=== PATIENT | female | born 1995 | race Caucasian/White ===

== ENCOUNTER 2019-12-01 20:56 | Emergency (ER) | payer MEDICAID, SELFPAY ==
[2019-12-01 21:07] VITALS: BP 146/77; PULSE 97; RESP 15; TEMP 36.8; O2SAT 100; BMI 30.9
[2019-12-01 21:14] LABS: Microscopic, Urine URINE MICROSCOPIC (MICROSCOPIC)
[2019-12-01 21:17] LABS: Appearance,Urine CLEAR (Clear); Bilirubin,Urine Negative (Negative); Blood, Urine Negative (Negative); Color,Urine YELLOW (Yellow); Glucose,Urine (UA) Negative (Negative); Ketones,Urine Negative (Negative); Leukocyte Esterase,Urine Negative (Negative); Nitrate,Urine Negative (Negative); PH,Urine 8.5 (5.0-8.5); Protein,Urine Negative (Negative); Urobilinogen,Urine 0.2 EU/dl (0.2)
[2019-12-01 21:27] LABS: Amorphous Sediment,Urine 1+ /lpf; Bacteria,Urine Trace /lpf; WBC,Urine Occasional #/hpf (0-3)
--- NOTE | 2019-12-01 21:47 | CT_ITS ---
PROCEDURE: CT ABDOMEN PELVIS WO CON CLINICAL INDICATION: belly pain Right flank pain COMPARISON: No exams were available for comparison TECHNIQUE: Axial images obtained with sagittal and coronal reformats. All CT scans at the facility use one or more dose reduction, viz: automated exposure control, ma/kV adjustment per patient size (including targeted exams where dose is matched to indication, i.e. head), or iterative reconstruction technique. FINDINGS: LOWER THORAX: No acute finding ABDOMEN & PELVIS: The liver, spleen, adrenal glands, pancreas, and kidneys have an unremarkable unenhanced CT appearance. There is a mild amount of retained colonic feces. There is a mild degree of motion artifact. No renal or ureteral calculi. No evidence of appendicitis. No pelvic mass or abnormal fluid collection. No acute bony findings. IMPRESSION: No acute finding Dictated by: Carlos Milan MD 12/02/2019 06:25 Carlos Milan MD in [place] 12/02/2019 06:25
[2019-12-01 21:49] LABS: Basophils # 0.1 K/mm3 (0-0.2); Basophils % 0.9 % (0.1-2.0); Eosinophils # 0.2 K/mm3 (0.0-0.4); Eosinophils % 2.3 % (0.1-12.0); Hematocrit 35.4 % (37.0-47.0); Hemoglobin 12.3 g/dL (12.2-16.2); Lymphocytes # 2.3 K/mm3 (0.7-4.5); Lymphocytes % 27.7 % (10-50); Mean Corpuscular HGB Conc 34.7 g/dL (31.8-35.4); Mean Corpuscular Hemoglobin 30.8 pg (27.0-31.2); Mean Corpuscular Volume 88.7 fl (81-99); Mean Platelet Volume 8.4 fl (7.4-10.4); Monocytes # 0.3 K/mm3 (0.1-1.0); Monocytes % 3.4 % (1.7-9.3); Neutrophils # 5.4 K/mm3 (1.8-7.8); Neutrophils % 65.8 % (37.0-80.0); Platelet Count 265 K/mm3 (142-424); Red Blood Count 3.99 M/mm3 (4.20-5.40); Red Cell Distribution Width 13.7 % (11.5-17.5); White Blood Count 8.2 K/mm3 (4.8-10.8)
[2019-12-01 22:00] VITALS: BP 128/72; PULSE 84; RESP 16; O2SAT 94
[2019-12-01 22:03] LABS: Chloride 105 mmol/L (98-107); Sodium 143 mmol/L (136-145)
[2019-12-01 22:04] LABS: Potassium 3.9 mmoL/L (3.5-5.1)
[2019-12-01 22:06] LABS: Alanine Aminotransferase 17 U/L (12-78); Alkaline Phosphatase 63 U/L (38-126); Amylase 50 U/L (30-110); Anion Gap 13.9 mEq/L (5-15); Aspartate Amino Transferase 25 U/L (14-36); Bilirubin,Total 0.5 mg/dl (0.2-1.3); Blood Urea Nitrogen 10 mg/dl (7-17); Calcium 9.6 mg/dl (8.4-10.2); Carbon Dioxide 28 mmol/L (22.0-30.0); Creatinine Clearance Estimated 220 mL/min (50-200); Estimated Glomerular Filt Rate 149 ml/min (>60); GFR (African American) 180 ML/MIN (>60); Glucose 99 mg/dl (74-100)
[2019-12-01 22:07] LABS: Albumin Level 4.3 g/dl (3.5-5.0); Albumin/Globulin Ratio 1.4 (1.1-1.8); Lipase 48 U/L (23-300); Total Protein,Serum 7.3 g/dl (6.3-8.2)
[2019-12-01 22:40] VITALS: BP 124/74; PULSE 88; RESP 15; O2SAT 98
--- NOTE | 2019-12-02 00:05 | HMH.EDABDPAI ---
ED Disposition Clinical Impression: Abdominal pain Qualifiers: Abdominal location: generalized Qualified Code(s): R10.84 - Generalized abdominal pain Disposition: Home, Self-Care Condition on Discharge: Fair Instructions: DI for Acute Abdomen Additional Instructions: Your labs as well as urine analysis also checked a CT abdomen and pelvis and no acute findings are seen plan is to discharge you home on a medicine called Bentyl which is basically for abdominal cramps please follow-up as needed with your primary care physician Prescriptions: Dicyclomine HCl [Bentyl 10mg capsule] 10 mg PO TID PRN #10 cap PRN Reason: Cramping Transmission Status: Pending to [facility] Referrals: Anish Gilmore [Primary Care Provider] - Forms: Work/School Release Time of Disposition: 00:11 - Critical Care Critical Care Time: No Attestation: On 12/01/19, the high probability of a clinically significant, sudden or life threatening deterioration of the following system(s) required my full and direct attention, intervention and personal management. The time I documented below is in addition to time spent performing reported procedures but includes the following listed in this critical care notation. Medical Decision Making - Medical Records Medical records reviewed: Yes: I reviewed the patient's medical records. MR Comment: Complaint of abdominal pain that has been ongoing for about 6 months she is here today because she states the symptoms are worse today it is nonspecific and diffuse. Labs show no acute findings; CT of the abdomen and pelvis was also reviewed and it also shows no acute findings; plan is to discharge patient home on Bentyl for abdominal cramps; I have advised her to follow-up with her primary care physician in case of any other concerns - [place] Inquiry Pt receiving controlled substance: No Vital Signs: 12/01/19 21:07 Temperature 98.3 F Temperature Source Oral Pulse Rate [Right Brachial] 97 H Respiratory Rate 15 Blood Pressure [Right Arm] 146/77 H Blood Pressure Mean [Right Arm] 100 Blood Pressure Source [Right Arm] Automatic Cuff Blood Pressure Position [Right Arm] Sitting 02 Sat by Pulse Oximetry 100 Oxygen Delivery Method Room Air - Lab Data Lab results reviewed: Yes: I reviewed the patient's lab results. Lab Results 12/01/19 21:00: Urine Color Yellow, Urine Appearance Clear, Urine pH 8.5, Ur Specific [place] 1.020, Urine Protein Negative, Urine Glucose (UA) Negative, Urine Ketones Negative, Urine Blood Negative, Urine Nitrate Negative, Urine Bilirubin Negative, Urine Urobilinogen 0.2, Ur Leukocyte Esterase Negative, Urine WBC Occasional, Amorphous Sediment 1+, Urine Bacteria Trace 12/01/19 21:45: WBC 8.2, RBC 3.99 L, Hgb 12.3, Hct 35.4 L, MCV 88.7, MCH 30.8, MCHC 34.7, RDW 13.7, Plt Count 265, MPV 8.4, Neut % (Auto) 65.8, Lymph % (Auto) 27.7, [place] % (Auto) 3.4, Eos % (Auto) 2.3, Baso % (Auto) 0.9, Neut # (Auto) 5.4, Lymph # (Auto) 2.3, [place] # (Auto) 0.3, Eos # (Auto) 0.2, Baso # (Auto) 0.1 12/01/19 21:45: Sodium 143, Potassium 3.9, Chloride 105, Carbon Dioxide 28, Anion Gap 13.9, BUN 10, Creatinine 0.50 L, Estimated Creat Clear 220, Estimated GFR 149, Est GFR ( Amer) 180, Glucose 99, Calcium 9.6, Total Bilirubin 0.5, AST 25, ALT 17, Alkaline Phosphatase 63, Total Protein 7.3, Albumin 4.3, Globulin 3.0, Albumin/Globulin Ratio 1.4, Amylase 50, Lipase 48 Result diagrams: 12/01/19 21:45 12/01/19 21:45 Orders (Tests/Meds): ORDERS Category Date Time Status CT abdomen pelvis wo con Stat Cat Scan 12/01/19 21:47 Taken - Radiology Data #1 Image(s): Abdomen Image Reviewed: Yes I reviewed the patient's radiology results Abdominal Pain HPI - General Chief Complaint: Abdominal Pain Stated Complaint: Abd Pain Time Seen by Provider: 12/01/19 21:05 Mode of Arrival: Ambulatory Source of Information: Patient Limitations: No Limitations Description of Symptoms (Recalle
[2019-12-02 00:13] VITALS: BP 127/73; PULSE 76; RESP 16; TEMP 36.8; O2SAT 100
== END 2019-12-02 00:18 | disposition home or self-care (01) ==
PROVIDERS: Emergency Provider Emergency Medicine; PCP Internal Medicine
DX: R10.84 Generalized abdominal pain (principal)
CPT/HCPCS: 74176; 80053; 81001; 82150; 83690; 85025; 99283

== ENCOUNTER 2019-12-21 14:18 | Emergency (ER) | payer MEDICAID, SELFPAY ==
[2019-12-21 15:12] VITALS: BP 124/78; PULSE 70; RESP 20; TEMP 36.6; O2SAT 100; BMI 29.2
--- NOTE | 2019-12-21 15:18 | HMH.EDUTC ---
[facility] [place] Impression: Bronchitis Sinusitis Qualifiers: Sinusitis location: unspecified location Chronicity: unspecified Qualified Code(s): J32.9 - Chronic sinusitis, unspecified Disposition: Home, Self-Care Condition on Discharge: Good Instructions: Sinusitis, Sinus Headache, DI for Sinusitis, Acute Bronchitis, DI for Acute Bronchitis Additional Instructions: ? Start antibiotic today. Be sure to complete entire prescription even if feeling better ? Monitor temp. Tylenol every 4 hours as needed and / or ibuprofen every 6 hours as needed ( As long as your primary care physician has told you that it ok to take both. For fever/aches/pains ER if no less than 101 despite Tylenol or Motrin ? Humidifier/vaporizer or hot steamy shower ? Inhaler every 4-6 hours as needed like we discussed. If unsure how to use it, ask pharmacist to demonstrate how. Should help open airways and improve cough, wheezing, and shortness of breath ? Mucinex during the day for your cough and cough suppressant only at night. Be sure to drink lots of water. Insurance may not cover a prescriptions for mucinex. Might be cheaper to get 400mg tablets and take 2 tablet in the morning, mid-day and evening with lots of water. Start steroid today. Helps with inflammation therefore, cough and wheezing. Follow directions on the package. Reviewed side effects. Patient reports taking them before. Follow up IMMEDIATELY for new or worsening of symptoms OR no noticeable improvement over the next 48-72 hours. 911 immediately for any life threatening symptoms such as chest pain or difficulty breathing Prescriptions: Albuterol Sulfate [Proventil-HFA 90mcg/puff Inh] 1 - 2 puffs IH Q4HP PRN #1 inh PRN Reason: Shortness Of Breath Transmission Status: Pending to [facility] # methylPREDNISolone [Medrol 4mg tab] 4 mg PO DIRECTED #21 tab Transmission Status: Pending to [facility] # Azithromycin [Z-Ag 250mg Tab] 250 mg PO DIRECTED #6 tab Transmission Status: Pending to [facility] # Referrals: Anish Gilmore [Primary Care Provider] - As needed Forms: Work/School Release Time of Disposition: 15:24 Medical Decision Making - Gustabo Inquiry Pt receiving controlled substance: No [place] was queried for this patient: No Vital Signs: 12/21/19 15:12 Temperature 97.9 F Temperature Source Oral Pulse Rate [Right Brachial] 70 Respiratory Rate 20 Blood Pressure [Right Arm] 124/78 Blood Pressure Mean [Right Arm] 93 Blood Pressure Source [Right Arm] Automatic Cuff Blood Pressure Position [Right Arm] Sitting 02 Sat by Pulse Oximetry 100 Oxygen Delivery Method Room Air Orders (Tests/Meds): ORDERS Category Date Time Status Covid-19 Nasal PCR ([facility]) Routine Lab 12/21/19 14:40 Received [facility] [place] - General Stated complaint: cough, sore throat, breating trouble Time Seen by Provider: 12/21/19 15:18 Mode of Arrival: Ambulatory Source of Information: Patient Limitations: No Limitations Description of Symptoms (Recalled from Triage Doc. by RN): PATIENT C/O WET COUGH AND CHEST DISCOMFORT X 2 WEEKS AND SORE THROAT X 1 WEEK HEENT Symptoms (Recalled from RN notes): Yes Resp Symptoms (Recalled from RN notes): Yes Skin Symptoms (Recalled from RN notes): No MS Symptoms (Recalled from RN notes): No Functional Status (Recalled from RN notes): WNL - History of Present Illness Provider Complaint: Patient states that she feels like she may have bronchitis States that she has been having sinus pain and pressure along with sore throat and productive cough at times States that she is unsure if she has had fever or not but has had headache and yellowish green mucous from her nose - Related Data Previous Rx's Medication Instructions Recorded Albuterol Sulfate [Proventil-HFA 1 - 2 puffs IH Q4HP PRN #1 inh 12/21/19 90mcg/puff Inh] Azithromycin [Z-Ga 250mg Tab] 250 mg PO DIRECTED #6 tab 0
[2019-12-21 15:37] VITALS: BP 122/85; PULSE 66; RESP 19; TEMP 36.7; O2SAT 99
--- NOTE | 2019-12-21 23:09 | PC.NURSE ---
Called pt and informed her she was positive for COVID. Advised her to call her place of employment and let them know. Also advised her she needed to self-quarantine and monitor her symptoms.
== END 2019-12-21 15:42 | disposition home or self-care (01) ==
PROVIDERS: Emergency Provider Nurse Practitioner; PCP Internal Medicine
DX: J20.9 Acute bronchitis, unspecified (principal); J32.9 Chronic sinusitis, unspecified; Z20.828 Contact with and (suspected) exposure to other viral communicable diseases
CPT/HCPCS: 99201; U0003

== ENCOUNTER 2020-05-12 14:07 | Emergency (ER) | payer MEDICAID, SELFPAY ==
[2020-05-12 14:15] VITALS: BP 138/93; PULSE 83; RESP 18; TEMP 36.9; O2SAT 97; BMI 27.4
--- NOTE | 2020-05-12 14:31 | HMH.EDUTC ---
[facility] [place] Clinical Impression: Sinusitis Qualifiers: Sinusitis location: maxillary Chronicity: acute Recurrence: non-recurrent Qualified Code(s): J01.00 - Acute maxillary sinusitis, unspecified Disposition: Home, Self-Care Condition on Discharge: Good Instructions: DI for Sinusitis Prescriptions: Amoxicillin/Potassium Clav [Augmentin 875-125 Tablet] 1 tab PO Q12H 10 Days #20 tab Transmission Status: Pending to [facility] # predniSONE [Prednisone 20mg Tab] 20 mg PO BID 5 Days #10 tab Transmission Status: Pending to [facility] # Referrals: Anish Gilmore [Primary Care Provider] - Time of Disposition: 14:39 Medical Decision Making - [place] Inquiry Pt receiving controlled substance: No [facility] [place] - General Stated complaint: sore throat, headache chest congestion Time Seen by Provider: 05/12/20 14:31 - History of Present Illness Provider Complaint: Headache, chest congestion, drainage, cough X 1 week. No fever. Has had some nausea. No vomiting or diarrhea. No loss of taste or smell. No exposure to COVID19. Onset (ago): week(s) (1) Location: chest Relieving factors: none Exacerbating factors: none Associated symptoms: denies other symptoms - Related Data Previous Rx's Medication Instructions Recorded Albuterol Sulfate [Proventil-HFA 1 - 2 puffs IH Q4HP PRN #1 inh 12/21/19 90mcg/puff Inh] Azithromycin [Z-Ag 250mg Tab] 250 mg PO DIRECTED #6 tab 12/21/19 methylPREDNISolone [Medrol 4mg 4 mg PO DIRECTED #21 tab 12/21/19 tab] Amoxicillin/Potassium Clav 1 tab PO Q12H 10 Days #20 tab 05/12/20 [Augmentin 875-125 Tablet] predniSONE [Prednisone 20mg 20 mg PO BID 5 Days #10 tab 05/12/20 Tab] Allergies Allergy/AdvReac Type Severity Reaction Status Date / Time No Known Allergies Allergy Verified 04/30/19 16:26 [facility] History - Hepatitis A Screen Attestation statement:: This patient has been screened for Hepatitis A risk factors. I have reviewed the patient's past medical history: Yes - Social History Alcohol Intake: never Occupational Status: other ROS Obtained: Yes All systems reviewed & no additional complaints - Constitutional Constitutional: Reports system reviewed and no additional complaints, except as docu, Reports body ache, Reports chills, Reports headache(s) - ENT Ears, Nose, Mouth, and Throat: Reports sore throat - Respiratory Respiratory: Reports chest congestion Physical Exam - General General appearance: alert, in no apparent distress - Head Head exam: atraumatic, normocephalic, normal inspection - Eye Eye exam: Present: normal appearance, PERRL, EOMI - ENT ENT exam: Present: normal exam, normal oropharynx, mucous membranes moist, TM's normal bilaterally, normal external ear exam - Expanded ENT Exam Nose exam: Present: sinus tenderness Mouth exam: Present: other (PND) - Neck Neck exam: Present: normal inspection, full ROM, trachea midline. Absent: meningismus, lymphadenopathy - Chest Chest inspection: Present: normal inspection, symmetric chest wall rise. Absent: tenderness - Respiratory Respiratory exam: Present: normal lung sounds bilaterally. Absent: respiratory distress - Cardiovascular Cardiovascular exam: Present: regular rate, normal rhythm. Absent: JVD - Abdominal Exam Abdominal exam: Present: soft, normal bowel sounds. Absent: distention, tenderness, guarding - Extremities Exam Extremities exam: Present: normal inspection, full ROM, normal capillary refill. Absent: calf tenderness - Back Exam Back exam: Present: normal inspection. Absent: tenderness - Neurological Exam Neurological exam: Present: alert, oriented X3 - Psychiatric Psychiatric exam: Present: normal affect, normal mood - Skin Skin exam: Present: warm, dry, intact, normal color - Lymphatic Lymphatic Findings: no adenopathy
[2020-05-12 14:41] VITALS: BP 138/93; PULSE 83; RESP 18; TEMP 36.9; O2SAT 97
[2020-05-12 14:44] LABS: UTC Strep Screen (Rapid) Negative (Negative)
[2020-05-12 14:45] LABS: UTC Influenza A Antigen Negative (Negative)
[2020-05-12 14:46] LABS: UTC Influenza B Antigen Negative (Negative)
== END 2020-05-12 14:44 | disposition home or self-care (01) ==
PROVIDERS: Emergency Provider Physician Assistant; PCP Internal Medicine
DX: J01.00 Acute maxillary sinusitis, unspecified (principal)
CPT/HCPCS: 87804; 87880; 99202; G0463

== ENCOUNTER 2020-11-29 11:13 | Emergency (ER) | payer MEDICAID, SELFPAY ==
[2020-11-29 12:15] VITALS: BP 121/76; PULSE 91; RESP 21; TEMP 36.6; O2SAT 99; BMI 31.7
--- NOTE | 2020-11-29 12:36 | HMH.EDUTC ---
[facility] [place] Clinical Impression: Exposure to COVID-19 virus Disposition: Home, Self-Care Condition on Discharge: Good Instructions: DI for COVID-19 (Suspected or Confirmed ), Preventing the Spread of Coronavirus Discharge Instructions Additional Instructions: *Monitor Temp, Over the counter Motrin or Tylenol as directed/as needed Tylenol every 4 hours and Motrin every 6 hours (as long as your family doctor has told you that you can take it) for fever or pain. and straight to ER if unable to lower temp less than 101.0 after medication given *Warm salt water gargles may help to soothe the throat *Throat Lozenges *Warm fluids like tea with honey may help to soothe the throat *Sleep elevated *Humidifier/Vaporizer Your throat swab was sent for culture. Those results are typically sent to your primary care. Be sure to follow up in 2-3 days with your family doctor/primary care physician if no improvement so they can review those result and treat if necessary. If you don?t have a primary care doctor, I recommend you get one but in the mean time, you will have to return to a walk in clinic Follow up IMMEDIATELY for new or worsening symptoms or no Noticeable improvement over the next 48-72 hours. 911 for difficulty breathing or swallowing You were tested for today for COVID19 your test result should be back in the next 24-48 hours, you was given instructions on how to log on the [facility] portal for your results. If you do not have internet or access you may call the [facility]. You was given a handout with instructions for Self Quarantine and Self isolation for while you wait on test results and what to do if they are positive If you are positive the Health Dept will be contacting you also Make sure to take your Vitamins Vit. C Vit D and Zinc if you can take them Referrals: Anish Gilmore [Primary Care Provider] - As needed Forms: Work/School Release Time of Disposition: 12:39 Medical Decision Making - [place] Inquiry Pt receiving controlled substance: No [place] was queried for this patient: No Vital Signs: 11/29/20 12:15 Temperature 97.8 F Temperature Source Oral Pulse Rate [Right] 91 H Respiratory Rate 21 Blood Pressure [Right Arm] 121/76 Blood Pressure Mean [Right Arm] 91 02 Sat by Pulse Oximetry 99 Orders (Tests/Meds): ORDERS Category Date Time Status Covid-19 Nasal PCR ([facility]) Routine Lab 11/29/20 11:49 Ordered [facility] [place] HPI - General Stated complaint: covid exposure and symtoms Time Seen by Provider: 11/29/20 12:36 Description of Symptoms (Recalled from Triage Doc. by RN): COVID EXPOSURE, COUGH, HEADACHE, SORE THROAT, BODY ACHE, CONGESTION HEENT Symptoms (Recalled from RN notes): No Resp Symptoms (Recalled from RN notes): No Skin Symptoms (Recalled from RN notes): No MS Symptoms (Recalled from RN notes): No Functional Status (Recalled from RN notes): WNL - History of Present Illness Provider Complaint: Patient states that she has been around someone that tested positive for COVID state that she is having cough, sore throat and body achyes and feeling tired so she wanted to get tested - Related Data Home Medications Medication Instructions Recorded Confirmed sertraline 50 mg tablet 50 mg PO DAILY 07/27/20 07/27/20 Previous Rx's Medication Instructions Recorded amoxicillin 500 mg capsule 500 mg PO Q12H 10 Days #20 cap 07/27/20 Allergies Allergy/AdvReac Type Severity Reaction Status Date / Time No Known Allergies Allergy Verified 11/29/20 12:19 - Worker's Comp Is this a Worker's Comp case?: No [facility] History - Hepatitis A Screen Drug use history?: No High risk sexual behaviors?: No History of sexually transmitted infection?: No Currently employed?: No Childcare worker?: No Do you have indoor plumbing?: Yes Do you have electricity?: Yes Attestation statement:: This patient has been screened for Hepatitis A risk factors. I have reviewed the patient's past m
[2020-11-29 12:40] LABS: UTC Strep Screen (Rapid) Negative (Negative)
[2020-11-29 12:54] VITALS: BP 121/7; PULSE 91; RESP 21; TEMP 36.6; O2SAT 99
--- NOTE | 2020-11-30 13:59 | PC.NURSE ---
informed that they was positive
== END 2020-11-29 12:55 | disposition home or self-care (01) ==
PROVIDERS: Emergency Provider Nurse Practitioner; PCP Internal Medicine
DX: U07.1 COVID-19 (principal); R05 Cough; R11.10 Vomiting, unspecified; R51.9 Headache, unspecified
CPT/HCPCS: 87880; 99202; G0463; U0003

== ENCOUNTER 2021-07-13 19:31 | Emergency (ER) | payer MEDICAID, SELFPAY ==
[2021-07-13 19:50] VITALS: BP 117/83; PULSE 87; RESP 16; TEMP 36.8; O2SAT 100; BMI 30.9
--- NOTE | 2021-07-13 20:11 | XR_ITS ---
PROCEDURE INFORMATION: Exam: XR Abdomen Exam date and time: 07/13/2021 8:16 PM Age: 25 years old Clinical indication: Abdominal pain; Generalized; Additional info: Abd pain TECHNIQUE: Imaging protocol: XR of the abdomen. Views: Frontal supine view of the abdomen. 1 View. COMPARISON: CT ABDOMEN PELVIS WO CON 12/01/2019 9:51 PM FINDINGS: Gastrointestinal tract: Moderate stool within the colon. No bowel dilation. Bones/joints: Mild rotoscoliosis. Phleboliths overlie the pelvic soft tissues. IMPRESSION: No acute findings.
[2021-07-13 20:19] LABS: Apearance,Urine Cloudy (Clear); Bilirubin,Urine Negative (Negative); Blood, Urine Trace (Negative); Color,Urine Yellow (Yellow); Glucose,Urine (UA) Negative (Negative); Ketones,Urine Negative (Negative); Protein,Urine Negative (Negative); Specific Gravity, Urine 1.025 (1.005-1.030); UTC Leukocyte Esterase,Urine Negative (Negative); UTC Nitrate,Urine Negative (Negative); UTC Pregnancy Test, Urine Negative (Negative); Urobilinogen,Urine 1 EU/dl (0.2)
--- NOTE | 2021-07-13 20:23 | HMH.EDUTC ---
[facility] [place] Clinical Impression: Constipation Qualifiers: Constipation type: unspecified constipation type Qualified Code(s): K59.00 - Constipation, unspecified Disposition: Home, Self-Care Condition on Discharge: Good Instructions: Constipation, DI for Constipation Additional Instructions: Take mirlax, probiotic and Citracil as you was prescribed by your Family Doctor Return if needed Follow up with your Family Doctor if symptoms continued Straight to ER if any life threatening symptoms Referrals: Anish Gilmore [Primary Care Provider] - As needed Time of Disposition: 20:52 Medical Decision Making - [place] Inquiry Pt receiving controlled substance: No [place] was queried for this patient: No Vital Signs: 07/13/21 19:50 07/13/21 20:48 Temperature 98.2 F 98.2 F Temperature Source Oral Pulse Rate 87 Pulse Rate [Left] 87 Respiratory Rate 16 16 Blood Pressure 117/83 Blood Pressure [Right Arm] 117/83 Blood Pressure Mean [Right Arm] 94 02 Sat by Pulse Oximetry 100 - Lab Data Lab Results 07/13/21 20:12: Urine Color Yellow, Urine Appearance Cloudy, Urine pH 7.0, Ur Specific [place] 1.025, Urine Protein Negative, Urine Glucose (UA) Negative, Urine Ketones Negative, Urine Blood Trace, Urine Nitrate Negative, Urine Bilirubin Negative, Urine Urobilinogen 1, Ur Leukocyte Esterase Negative, Tst Clinic Negative - Radiology Data #1 Image(s): KUB Image Reviewed: Yes I have reviewed radiologist's interpretation FINDINGS: Gastrointestinal tract: Moderate stool within the colon. No bowel dilation. Bones/joints: Mild rotoscoliosis. Phleboliths overlie the pelvic soft tissues. IMPRESSION: No acute findings. Medical Decision Narrative: Discussed with patient about transfer to the ED for further work up and evaluation and patient declined states that she will try the Mirlax and return to the ED if pain returns [facility] [place] HPI - General Stated complaint: abdominal pain Time Seen by Provider: 07/13/21 20:24 Mode of Arrival: Ambulatory Source of Information: Patient Limitations: No Limitations Description of Symptoms (Recalled from Triage Doc. by RN): pt c/o RLQ abd pain that comes and goes x4-5 months. HEENT Symptoms (Recalled from RN notes): No Resp Symptoms (Recalled from RN notes): No Skin Symptoms (Recalled from RN notes): No MS Symptoms (Recalled from RN notes): No Functional Status (Recalled from RN notes): wnl - History of Present Illness Provider Complaint: Patient states that she has been having some abdominal pain on and off for about 4mths States that she seen OBGYN and they did a check and said that all is good then she seen PCP and they told her she was constipated and started her on Mirlax, probiotics and Citracil but she hasnt been taking it and earlier she had a some pain but it has stopped now she came in wanting to get checked - Related Data Home Medications Medication Instructions Recorded Confirmed sertraline 50 mg tablet 50 mg PO DAILY 07/27/20 07/27/20 Previous Rx's Medication Instructions Recorded amoxicillin 500 mg capsule 500 mg PO Q12H 10 Days #20 cap 07/27/20 Allergies Allergy/AdvReac Type Severity Reaction Status Date / Time No Known Allergies Allergy Verified 11/29/20 12:19 - Worker's Comp Is this a Worker's Comp case?: No [facility] History - Hepatitis A Screen Drug use history?: No High risk sexual behaviors?: No History of sexually transmitted infection?: No Currently employed?: No Childcare worker?: No Do you have indoor plumbing?: Yes Do you have electricity?: Yes Attestation statement:: This patient has been screened for Hepatitis A risk factors. I have reviewed the patient's past medical history: Yes Medical History: Reports:: Depression Other Surgeries: Yes: No Previous Surgery - Social History Smoking Status: Former smoker Alcohol Intake: never Occupational Status: other - Psychiatric His
[2021-07-13 20:48] VITALS: BP 117/83; PULSE 87; RESP 16; TEMP 36.8
== END 2021-07-13 21:02 | disposition home or self-care (01) ==
PROVIDERS: Emergency Provider Nurse Practitioner; PCP Internal Medicine
DX: K59.00 Constipation, unspecified (principal); F33.1 Major depressive disorder, recurrent, moderate
CPT/HCPCS: 74018; 81003; 81025; 99212; G0463

== ENCOUNTER 2021-09-14 13:23 | Emergency (ER) | payer BC, SELFPAY ==
[2021-09-14 13:40] VITALS: BP 126/69; PULSE 110; RESP 21; TEMP 37.8; O2SAT 97; BMI 29.3
--- NOTE | 2021-09-14 13:50 | HMH.EDUTC ---
[facility] [place] Clinical Impression: Otitis media Qualifiers: Otitis media type: unspecified Laterality: left Qualified Code(s): H66.92 - Otitis media, unspecified, left ear Disposition: Home, Self-Care Condition on Discharge: Good Instructions: Middle Ear Infection, Cefdinir, Fluticasone Nasal Slick, DI for COVID-19 (Suspected or Confirmed ) Additional Instructions: *Monitor Temp, Over the counter Motrin or Tylenol as directed/as needed Tylenol every 4 hours and Motrin every 6 hours (as long as your family doctor has told you that you can take it) for fever or pain. and straight to ER if unable to lower temp less than 101.0 after medication given *Warm salt water gargles may help to soothe the throat *Throat Lozenges *Warm fluids like tea with honey may help to soothe the throat *Sleep elevated *Humidifier/Vaporizer *Flonase 2 sprays in each nostril daily but be aware that it may take 2-3 days before you notice improvement Your throat swab was sent for culture. Those results are typically sent to your primary care. Be sure to follow up in 2-3 days with your family doctor/primary care physician if no improvement so they can review those result and treat if necessary. If you don?t have a primary care doctor, I recommend you get one but in the mean time, you will have to return to a walk in clinic Follow up IMMEDIATELY for new or worsening symptoms or no Noticeable improvement over the next 48-72 hours. 911 for difficulty breathing or swallowing You were tested for today for COVID19 your test result should be back in the next 24-48 hours, you may check your results on the [facility] my Health Portal Make sure to take your Vitamins Vit. C Vit D and Zinc if you can take them Prescriptions: Fluticasone Propionate [Flonase 50mcg nasal spray 16gm] 1 spr NS DAILY #1 each Transmission Status: Pending to [facility] # Cefdinir [Omnicef 300mg Capsule] 300 mg PO BID #20 cap Transmission Status: Pending to [facility] # Referrals: Guicho Abel MD [Primary Care Provider] - As needed Forms: Work/School Release Time of Disposition: 14:30 Medical Decision Making - Gustabo Inquiry Pt receiving controlled substance: No Gust[place] was queried for this patient: No Vital Signs: 09/14/21 13:40 Temperature 100.1 F H Temperature Source Temporal Artery Scan Pulse Rate [Left Apical] 110 H Respiratory Rate 21 Blood Pressure [Left Arm] 126/69 Blood Pressure Mean [Left Arm] 88 Blood Pressure Source [Left Arm] Automatic Cuff Blood Pressure Position [Left Arm] Sitting 02 Sat by Pulse Oximetry 97 Oxygen Delivery Method Room Air - Lab Data Lab results reviewed: Yes: I reviewed the patient's lab results. Lab Results 09/14/21 13:54: Group A Strep Rapid Negative Orders (Tests/Meds): ORDERS Category Date Time Status Strep Screen Confirmation Stat Micro 09/14/21 13:54 [place] [facility] - General Stated complaint: Sore throat; headache; ear pain Time Seen by Provider: 09/14/21 13:51 Mode of Arrival: Ambulatory Source of Information: Patient Limitations: No Limitations Description of Symptoms (Recalled from Triage Doc. by RN): PATIENT C/O SORE THROAT, CONGESTION HEADACHE, EAR PAIN AND COUGH FOR SEVERAL DAYS HEENT Symptoms (Recalled from RN notes): Yes Resp Symptoms (Recalled from RN notes): Yes Skin Symptoms (Recalled from RN notes): No MS Symptoms (Recalled from RN notes): No Functional Status (Recalled from RN notes): WNL - History of Present Illness Provider Complaint: Patient states that she hasnt felt well for several days States that she has been having sore throat, headache, ear pain,, fever, and cough States that today she was feeling worse and aching all over so she came in to get checked out - Related Data Home Medications Medication Instructions Recorded Confirmed sertraline 50 mg tablet 50 mg PO DAILY 07/27/20 09/14/21 Previous Rx's Medication Instructions Recorded
[2021-09-14 14:08] LABS: Strep Scrn Group A (Rapid) Negative (Negative)
[2021-09-14 14:33] VITALS: BP 126/69; PULSE 110; RESP 21; TEMP 37.8; O2SAT 97
[2021-09-14 14:52] LABS: Adenovirus,PCR Not Detected (NotDetected); Bordetella Pertussis Not Detected (NotDetected); Chlamydophila Pneumoniae, PCR Not Detected (NotDetected); Coronavirus 229E Not Detected (NotDetected); Coronavirus NL63 Not Detected (NotDetected); Coronavirus OC43 Not Detected (NotDetected); Coronovirus HKU1,PCR Not Detected (NotDetected); Human Metapneumovirus Not Detected (NotDetected); Influenza A, PCR Not Detected (NotDetected); Influenza AH1, 2009 Not Detected (NotDetected); Influenza AH1, PCR Not Detected (NotDetected); Influenza AH3,PCR Not Detected (NotDetected); Influenza B, PCR Not Detected (NotDetected); Mycoplasma Pneumoniae, PCR Not Detected (NotDetected); Parainfluenza 1, PCR Not Detected (NotDetected); Parainfluenza 2, PCR Not Detected (NotDetected); Parainfluenza 3, PCR Not Detected (NotDetected); Parainfluenza 4, PCR Not Detected (NotDetected); Respiratory Syncytial Virus Not Detected (NotDetected); Rhinovirus/Enterovirus Not Detected (NotDetected)
[2021-09-14 18:09] LABS: Coronavirus 19, PCR Detected (NotDetected)
== END 2021-09-14 14:41 | disposition home or self-care (01) ==
PROVIDERS: Emergency Provider Nurse Practitioner; PCP Internal Medicine Adolescent Medicine
DX: H66.92 Otitis media, unspecified, left ear (principal); U07.1 COVID-19; J02.9 Acute pharyngitis, unspecified; R51.9 Headache, unspecified
CPT/HCPCS: 87430; 87581; 87632; 87798; 99212; C9803; G0463; U0003; U0005

== ENCOUNTER → 2021-10-02 07:44 | Outpatient (CLI) | payer BC, SELFPAY ==
--- NOTE | 2021-10-02 08:20 | US_ITS ---
FINAL REPORT CLINICAL HISTORY: LOWER ABD PAIN FINDINGS: Sonographic images of the abdomen were obtained. The liver has an unremarkable appearance with normal echogenicity. The gallbladder has an unremarkable appearance without evidence of gallstones. There is no evidence of biliary ductal dilatation. The common hepatic duct measures 3 mm, which is within normal limits. Limited images of the pancreas are unremarkable. The spleen size is normal. The right kidney measures 11.2 cm in length. The left kidney measures 10.6 cm in length. There is normal renal echogenicity. There is no evidence of hydronephrosis. The aorta has an unremarkable appearance. Limited images of the inferior vena cava are unremarkable. IMPRESSION: Unremarkable abdominal ultrasound with no acute abnormality identified. Reviewed, Interpreted and Dictated by Jatin Adan MD Transcribed by Adele Hayden Authenticated and [facility]
== END ==
PROVIDERS: PCP Internal Medicine Adolescent Medicine; Visit Provider Nurse Practitioner Family
DX: R10.30 Lower abdominal pain, unspecified (principal)
CPT/HCPCS: 76700

== ENCOUNTER 2022-02-13 17:05 | Emergency (ER) | payer BC, MEDICAID, SELFPAY ==
--- NOTE | 2022-02-13 18:39 | EXP.UTC ---
Discharge Plan Disposition Patient Disposition: Home, Self-Care Condition: Good Prescriptions Prescriptions: New amoxicillin [amoxicillin] 500 mg tablet 500 mg PO TID 10 Days Qty: 30 0RF methylprednisolone 4 mg Tablets,Dose Pack 4 mg PO DIRECTED Qty: 21 0RF danmacasmtrcucx-zbjohbzau-FO [Bromfed DM] 2-30-10 mg/5 mL Syrup 5 ml PO Q6H PRN (Reason: Cough) Qty: 240 0RF No Action sertraline 50 mg tablet 50 mg PO DAILY cefdinir 300 MG capsule 300 mg PO BID Qty: 20 0RF fluticasone propionate 120 SPRAY bottle 1 spr NS DAILY Qty: 1 0RF Rx Instructions: one spray in each nostril daily Referrals Follow up/Referrals: Guicho Abel MD [Primary Care Provider] - See instructions Activity Restrictions/Add. Instructions Additional Instructions/Restrictions: Drink plenty of fluids. Take tylenol or ibuprofen for pain or fever. Take the medications as directed. Follow up with your regular doctor. GO TO THE ER FOR ANY WORSENING SYMPTOMS Throw your tooth brush away and get a new one. Clinical Impressions Clinical Impression: Strep throat Instructions Patient Instructions: Strep Throat, DI for Strep Throat Discharge ED Provider: Carlos Roa [facility] [place] General Stated complaint: sore throat, STEELE Time Seen by Provider: 02/13/22 18:39 History of Present Illness Provider Complaint: She states that for the past 2 days she has had sore throat, chills, low grade fever and she has felt bad. Related Data Home Medications Medication Instructions Recorded Confirmed sertraline 50 mg tablet 50 mg PO DAILY Depression 07/27/20 09/14/21 Previous Rx's Medication Instructions Recorded cefdinir 300 mg capsule 300 mg PO BID #20 caps 09/14/21 fluticasone propionate 50 1 spr intranasal DAILY #1 ea 09/14/21 mcg/actuation nasal spray,suspension amoxicillin 500 mg tablet 500 mg PO TID 10 days #30 tabs 02/13/22 fenoepxveufqxcc-pyehyvnssxilmva-OL 5 ml PO Q6H PRN Cough #240 mL 02/13/22 2 mg-30 mg-10 mg/5 mL oral syrup (Bromfed DM) methylprednisolone 4 mg tablets in 4 mg PO DIRECTED #21 tabs 02/13/22 a dose pack Allergies Allergy/AdvReac Type Severity Reaction Status Date / Time No Known Allergies Allergy Verified 02/13/22 18:41 [facility] Social History Smoking Status: Former smoker alcohol intake: never current occupational status: other Travel in the last 8 weeks: None ROS Obtained: Yes All systems reviewed & no additional complaints except as documented Constitutional Constitutional: Reports chills and Reports fever(s) Eyes Eyes: Denies eye discharge ENT Ears, Nose, Mouth, and Throat: Reports as per HPI Cardiovascular Cardiovascular: Denies chest pain Respiratory Respiratory: Denies chest congestion and Reports cough Gastrointestinal Gastrointestingal: Reports nausea; Denies abdominal pain, constipation, cramping, diarrhea or vomiting Musculoskeletal Musculoskeletal: Denies arthralgias Integumentary/Breasts Skin/Breast: Denies rash Neurologic Neurologic: Denies paresthesias Physical Exam General General appearance: alert and in no apparent distress Head Head exam: atraumatic, normocephalic and normal inspection Eye Eye exam: Present normal appearance, PERRL and EOMI ENT ENT exam: Present mucous membranes moist and normal external ear exam Expanded ENT Exam TM/Canal exam: Bilateral TM: erythema and bulging Nose exam: Absent sinus tenderness Mouth exam: Present normal external inspection; Absent drooling Teeth exam: Present normal inspection Throat exam: Present tonsillar erythema, tonsillomegaly and tonsillar exudate Neck Neck exam: Present normal inspection, full ROM and trachea midline; Absent tenderness, meningismus or lymphadenopathy Chest Chest inspection: Present normal inspection and symmetric chest wall rise; Absent tenderness Respiratory Respiratory exam: Present juan
[2022-02-13 18:40] VITALS: BP 114/75; PULSE 86; RESP 18; TEMP 37; O2SAT 99; BMI 29.2
[2022-02-13 18:46] LABS: UTC Strep Screen (Rapid) Positive (Negative)
[2022-02-13 19:15] VITALS: BP 114/75; PULSE 86; RESP 18; TEMP 37
== END 2022-02-13 19:16 | disposition home or self-care (01) ==
PROVIDERS: Emergency Provider Nurse Practitioner Family; PCP Internal Medicine Adolescent Medicine
DX: J02.0 Streptococcal pharyngitis (principal)
CPT/HCPCS: 87880; 99212; G0463

== ENCOUNTER 2022-03-01 13:35 | Emergency (ER) | payer BC, MEDICAID, SELFPAY ==
[2022-03-01 15:51] LABS: UTC Strep Screen (Rapid) Negative (Negative)
[2022-03-01 15:53] VITALS: BP 130/85; PULSE 92; RESP 18; TEMP 37.1; O2SAT 100; BMI 29.2
--- NOTE | 2022-03-01 16:03 | EXP.UTC ---
Discharge Plan Disposition Patient Disposition: Home, Self-Care Condition: Good Prescriptions Prescriptions: New amoxicillin [amoxicillin] 500 mg tablet 500 mg PO TID 10 Days Qty: 30 0RF benzonatate [benzonatate] 100 mg capsule 100 mg PO TIDP PRN (Reason: Cough) Qty: 30 0RF methylprednisolone 4 mg Tablets,Dose Pack 4 mg PO DIRECTED Qty: 21 0RF No Action sertraline 50 mg tablet 50 mg PO DAILY cefdinir 300 MG capsule 300 mg PO BID Qty: 20 0RF fluticasone propionate 120 SPRAY bottle 1 spr NS DAILY Qty: 1 0RF Rx Instructions: one spray in each nostril daily amoxicillin [amoxicillin] 500 mg tablet 500 mg PO TID 10 Days Qty: 30 0RF methylprednisolone 4 mg Tablets,Dose Pack 4 mg PO DIRECTED Qty: 21 0RF pfbajbsyfssgkzj-ihwhowdbm-EX [Bromfed DM] 2-30-10 mg/5 mL Syrup 5 ml PO Q6H PRN (Reason: Cough) Qty: 240 0RF Referrals Follow up/Referrals: Anette Gaviria APRN [Primary Care Provider] - See instructions Activity Restrictions/Add. Instructions Additional Instructions/Restrictions: Drink plenty of fluids. Take tylenol or ibuprofen for pain or fever. Take the medications as directed. Follow up with your regular doctor. GO TO THE ER FOR ANY WORSENING SYMPTOMS Clinical Impressions Clinical Impression: Bronchitis, Pharyngitis Stand Alone Forms Stand Alone Forms: Work/School Release Instructions Patient Instructions: Acute Bronchitis, DI for Pharyngitis/Tonsillopharyngitis -- Adult Discharge ED Provider: Carlos Roa [facility] General Stated complaint: cough,headache,sore throat Mode of Arrival: Ambulatory Source of Information: Patient Limitations: No Limitations Time Seen by Provider: 03/01/22 16:02 Description of Symptoms (Recalled from Triage Doc. by RN): pt comes in with c/o cough, congestion, stuffy/runnynose, sore throat, headache. symptoms began 1 week ago HEENT Symptoms (Recalled from RN notes): Yes Resp Symptoms (Recalled from RN notes): Yes Skin Symptoms (Recalled from RN notes): No MS Symptoms (Recalled from RN notes): No Functional Status (Recalled from RN notes): n/a History of Present Illness Provider Complaint: She states that for the past 1 week she has c/o cough, congestion, stuffy/runnynose, sore throat, headache. Related Data Home Medications Medication Instructions Recorded Confirmed sertraline 50 mg tablet 50 mg PO DAILY Depression 07/27/20 09/14/21 Previous Rx's Medication Instructions Recorded cefdinir 300 mg capsule 300 mg PO BID #20 caps 09/14/21 fluticasone propionate 50 1 spr intranasal DAILY #1 ea 09/14/21 mcg/actuation nasal spray,suspension amoxicillin 500 mg tablet 500 mg PO TID 10 days #30 tabs 02/13/22 ubgldlprpshytjy-vsyqxdzylfvhras-JE 5 ml PO Q6H PRN Cough #240 mL 02/13/22 2 mg-30 mg-10 mg/5 mL oral syrup (Bromfed DM) methylprednisolone 4 mg tablets in 4 mg PO DIRECTED #21 tabs 02/13/22 a dose pack amoxicillin 500 mg tablet 500 mg PO TID 10 days #30 tabs 03/01/22 benzonatate 100 mg capsule 100 mg PO TIDP PRN Cough #30 caps 03/01/22 methylprednisolone 4 mg tablets in 4 mg PO DIRECTED #21 tabs 03/01/22 a dose pack Allergies Allergy/AdvReac Type Severity Reaction Status Date / Time No Known Allergies Allergy Verified 03/01/22 15:55 Worker's Comp Is this a Worker's Comp case?: No [id number] Disclaimer: The information contained in this section may have been updated after the patient was seen, as this information can be updated by other users. Social History Smoking Status: Former smoker alcohol intake: never current occupational status: other Travel in the last 8 weeks: None ROS Obtained: Yes All systems reviewed & no additional complaints except as documented Constitutional Constitutional: Reports chills and Reports fever(s) Eyes Eyes: Denies eye discharge ENT Ears, Nose, Mouth, and Throat: Repo
[2022-03-01 16:39] VITALS: BP 130/85; PULSE 90; RESP 18; TEMP 37.1
[2022-03-01 16:46] LABS: Adenovirus,PCR Not Detected (NotDetected); Bordetella Pertussis Not Detected (NotDetected); Chlamydophila Pneumoniae, PCR Not Detected (NotDetected); Coronavirus 19, PCR Not Detected (NotDetected); Coronavirus 229E Not Detected (NotDetected); Coronavirus OC43 Not Detected (NotDetected); Coronovirus HKU1,PCR Not Detected (NotDetected); Human Metapneumovirus Not Detected (NotDetected); Influenza A, PCR Not Detected (NotDetected); Influenza AH1, 2009 Not Detected (NotDetected); Influenza AH1, PCR Not Detected (NotDetected); Influenza AH3,PCR Not Detected (NotDetected); Influenza B, PCR Not Detected (NotDetected); Mycoplasma Pneumoniae, PCR Not Detected (NotDetected); Parainfluenza 1, PCR Not Detected (NotDetected); Parainfluenza 2, PCR Not Detected (NotDetected); Parainfluenza 3, PCR Not Detected (NotDetected); Parainfluenza 4, PCR Not Detected (NotDetected); Respiratory Syncytial Virus Not Detected (NotDetected); Rhinovirus/Enterovirus Not Detected (NotDetected)
[2022-03-01 18:18] LABS: Coronavirus NL63 Detected (NotDetected)
== END 2022-03-01 16:39 | disposition home or self-care (01) ==
PROVIDERS: Emergency Provider Nurse Practitioner Family; PCP Nurse Practitioner Family
DX: J40 Bronchitis, not specified as acute or chronic
CPT/HCPCS: 87581; 87632; 87798; 87880; 99212; C9803; G0463; U0003; U0005

== ENCOUNTER → 2022-09-18 11:23 | Outpatient (CLI) | payer BC, MEDICAID, SELFPAY ==
--- NOTE | 2022-09-18 11:36 | XR_ITS ---
FINAL REPORT CLINICAL HISTORY: LOW BACK PAIN FINDINGS: AP standing thoracolumbar spine views for scoliosis: There is a very minimal 6 degree curve apex to the patient's right noted. The apex of the curve is at the T8 level. No vertebral anomalies are identified. No paraspinous soft tissue swelling or mass is seen. IMPRESSION: Minimal 6 degree curve centered at the T8 level, apex directed to the patient's right. Reviewed, Interpreted and Dictated by Reese Coughlin III, MD Transcribed by Stephani Trent Authenticated and . [facility]
== END ==
PROVIDERS: PCP Nurse Practitioner Family; Visit Provider Physician Assistant
DX: M54.50 Low back pain, unspecified (principal)
CPT/HCPCS: 72081

== ENCOUNTER → 2022-10-04 09:45 | Outpatient (CLI) | payer BC, MEDICAID, SELFPAY ==
[2022-10-04 10:17] LABS: Basophils % 0.6 % (0.1-2.0); Eosinophils # 0.1 K/mm3 (0.0-0.4); Eosinophils % 2.1 % (0.1-12.0); Hematocrit 37.1 % (37.0-47.0); Hemoglobin 12.3 g/dL (12.2-16.2); Lymphocytes # 1.8 K/mm3 (0.7-4.5); Lymphocytes % 31.3 % (10-50); Mean Corpuscular HGB Conc 33.1 g/dL (31.8-35.4); Mean Corpuscular Hemoglobin 29.6 pg (27.0-31.2); Mean Corpuscular Volume 89.5 fl (81-99); Mean Platelet Volume 8.5 fl (7.4-10.4); Monocytes # 0.3 K/mm3 (0.1-1.0); Monocytes % 4.9 % (1.7-9.3); Neutrophils # 3.6 K/mm3 (1.8-7.8); Neutrophils % 61.1 % (37.0-80.0); Platelet Count 302 K/mm3 (142-424); Red Blood Count 4.15 M/mm3 (4.20-5.40); Red Cell Distribution Width 13.7 % (11.5-17.5); White Blood Count 5.9 K/mm3 (4.8-10.8)
[2022-10-04 10:36] LABS: Alanine Aminotransferase 18 U/L (12-78); Albumin/Globulin Ratio 1.4 (1.1-1.8); Alkaline Phosphatase 59 U/L (38-126); Anion Gap 11.1 mEq/L (5-15); Aspartate Amino Transferase 21 U/L (14-36); Bilirubin,Total 1.4 mg/dl (0.2-1.3); Blood Urea Nitrogen 14 mg/dl (7-17); Carbon Dioxide 26 mmol/L (22.0-30.0); Chloride 107 mmol/L (98-107); Chol/HDL Ratio 3.3 (1-3.5); Cholesterol 153 mg/dl (140-200); Estimated Glomerular Filt Rate 119 ml/min (>60); GFR (African American) 144 ML/MIN (>60); Globulin 2.8 g/dL (1.3-3.2); Glucose 104 mg/dl (74-100); HDL Cholesterol 46 mg/dl (40-60); Potassium 4.1 mmoL/L (3.5-5.1); Sodium 140 mmol/L (136-145); Total Protein,Serum 6.8 g/dl (6.3-8.2); Triglycerides 101 mg/dl (30-150); VLDL Cholesterol 20 mg/dL (0-40)
[2022-10-04 10:49] LABS: Direct LDL Cholesterol 97.88 mg/dL (100-129)
[2022-10-04 10:55] LABS: 25-OH Vitamin D, Total 34.3 ng/mL (30-100)
[2022-10-04 12:09] LABS: Iron 151 ug/dL (37-170)
[2022-10-04 12:19] LABS: Total Iron Binding Capacity 465 ug/dL (265-497)
[2022-10-04 12:41] LABS: Thyroid Stimulating Hormone 1.69 uIU/mL (0.465-4.68)
[2022-10-04 14:05] LABS: Hemoglobin A1C 5.4 % (4.0-6.0)
[2022-10-04 15:20] LABS: Vitamin B12 245 pg/mL (239-931)
== END ==
PROVIDERS: PCP Physician Assistant; Visit Provider Physician Assistant
DX: Z00.00 Encounter for general adult medical examination without abnormal findings (principal); K62.5 Hemorrhage of anus and rectum; F32.A Depression, unspecified; Z83.3 Family history of diabetes mellitus; Z83.438 Family history of other disorder of lipoprotein metabolism and other lipidemia
CPT/HCPCS: 36415; 80053; 80061; 82306; 82607; 82728; 83036; 83540; 83550; 84443; 85025

== ENCOUNTER → 2022-12-19 09:25 | Outpatient (CLI) | payer BC, MEDICAID, SELFPAY ==
--- NOTE | 2022-12-19 09:28 | US_ITS ---
PROCEDURE: US TRANSVAGINAL CLINICAL INDICATION: PELVIC AND PERINEAL PAIN, COMPARISON: No exams were available for comparison FINDINGS: Transabdominal sonographic images of the pelvis were obtained. UTERUS: 8.3 cm x 5.7 cmx 5.0 cm with a combined endometrial thickness of 10.9mm. The uterus is anteverted. There is a small nabothian cyst measuring 7.5 mm. LEFT OVARY: 2.4 cmx2.9 cmx1.6cm with a volume of 5.8ml. There are several small follicles. There is a dominant follicle measuring 1.0 cm x 1.3 cm x 0.7 cm. RIGHT OVARY: 3.4 cmx 2.2 cmx1.6 cm with a volume of 8.1ml. There are several small follicles. There is a dominant follicle measuring 1.3 cm x 1.8 cm x 1.5 cm. Both ovaries are seen and appear normal. Doppler flow to both ovaries are seen. There is no fluid in the cul-de-sac. IMPRESSION: 1. Anteverted uterus normal in shape and normal in size. 2. Ovaries appear normal. There are follicles on both ovaries. 3. No fluid in the cul-de-sac. Dictated by: Rogerio Rice MD 12/19/2022 12:06 Rogerio Rice MD in OV 12/19/2022 12:06
== END ==
PROVIDERS: PCP Physician Assistant; Visit Provider Nurse Practitioner Family
DX: R10.2 Pelvic and perineal pain (principal); G89.29 Other chronic pain
CPT/HCPCS: 76830

== ENCOUNTER → 2022-12-20 11:29 | Outpatient (CLI) | payer BC, MEDICAID, SELFPAY ==
--- NOTE | 2022-12-20 11:36 | FL_ITS ---
FINAL REPORT CLINICAL HISTORY: . gerd FINDINGS: UPPER GI EXAM HISTORY: Abdominal pain, nausea. PROCEDURE: The patient ingested barium. Effervescent crystals were also administered. Spot and overhead films were obtained. FINDINGS: The esophagus is normal. There is no hiatal hernia. There is no gastroesophageal reflux. Peristalsis is normal. The rugal fold pattern of the stomach is normal. The duodenal bulb is normal. FLUOROSCOPY TIME: Time and radiation dosage not provided. IMPRESSION: Normal upper GI. Films reviewed , interpreted and dictated by Dr. Coughlin Transcribed by Melvin Banegas PA-C. Reviewed, Interpreted and Dictated by Reese Coughlin III, MD Transcribed by JERI Kaur Authenticated and [facility]
== END ==
LOC: RAD 11:31
PROVIDERS: PCP Nurse Practitioner Family; Visit Provider Nurse Practitioner Family
DX: K21.9 Gastro-esophageal reflux disease without esophagitis (principal)
CPT/HCPCS: 74221; 74246

== ENCOUNTER 2023-05-21 18:40 | Emergency (ER) | payer MEDICAID, SELFPAY ==
[2023-05-21 19:40] VITALS: BP 139/88; PULSE 95; RESP 19; TEMP 36.7; O2SAT 100; BMI 37.0
[2023-05-21 20:07] LABS: UTC Influenza A Antigen Negative (Negative); UTC Influenza B Antigen Negative (Negative); UTC Strep Screen (Rapid) Negative (Negative)
--- NOTE | 2023-05-21 20:10 | EXP.UTC ---
Discharge Plan Disposition Patient Disposition: Home, Self-Care Condition: Good Prescriptions Prescriptions: New fluticasone propionate [Flonase Allergy Relief] 50 mcg/actuation spray,suspension 2 spray intranasal DAILY Qty: 16 0RF Rx Instructions: administer into each nostril daily meclizine 25 mg tablet 25 mg PO TID PRN (Reason: dizziness) Qty: 15 0RF No Action famotidine 20 mg tablet 20 mg PO BID Patient Comments: TAKE 1 TABLET BY MOUTH TWICE DAILY escitalopram oxalate 20 mg tablet 20 mg PO DAILY Patient Comments: TAKE 1 TABLET BY MOUTH EVERY DAY Referrals Follow up/Referrals: Wanda Wood APRN [Primary Care Provider] - See instructions Activity Restrictions/Add. Instructions Additional Instructions/Restrictions: *Monitor Temp, Over the counter Motrin or Tylenol as directed/as needed Tylenol every 4 hours and Motrin every 6 hours (as long as your family doctor has told you that you can take it) for fever or pain. and straight to ER if unable to lower temp less than 101.0 after medication given *Warm salt water gargles may help to soothe the throat *Throat Lozenges? *Warm fluids like tea with honey may help to soothe the throat? *Sleep elevated *Humidifier/Vaporizer *Flonase 2 sprays in each nostril daily but be aware that it may take 2-3 days before you notice improvement Take Meclizine as prescribed for Dizziness/vertigo Your throat swab was sent for culture. Those results are typically sent to your primary care. Be sure to follow up in 2-3 days with your family doctor/primary care physician if no improvement so they can review those result and treat if necessary. If you don?t have a primary care doctor, I recommend you get one but in the mean time, you will have to return to a walk in clinic Follow up IMMEDIATELY for new or worsening symptoms or no Noticeable improvement over the next 48-72 hours. 911 for difficulty breathing or swallowing You were tested for today for Upper Respiratory Panel with COVID19 your test result should be back in the next 24hours, you may check your results on the [facility] [employer] [facility] Portal for your results if your COVID test is positive you must Quarantine for 5 days Clinical Impressions Clinical Impression: URI (upper respiratory infection) Qualifiers: URI type: unspecified URI Qualified Code(s): J06.9 - Acute upper respiratory infection, unspecified Instructions Patient Instructions: Sore Throat, DI for Vertigo, Meclizine Discharge ED Provider: Silvana Lars[place] [facility] [place] General Stated complaint: sore throat, dizzy STEELE Mode of Arrival: Ambulatory Source of Information: Patient Limitations: No Limitations Time Seen by Provider: 05/21/23 20:10 Description of Symptoms (Recalled from Triage Doc. by RN): Pt's symptoms are migraine, sore throat, and cough. HEENT Symptoms (Recalled from RN notes): Yes Resp Symptoms (Recalled from RN notes): No Skin Symptoms (Recalled from RN notes): No MS Symptoms (Recalled from RN notes): No Functional Status (Recalled from RN notes): n/a History of Present Illness Provider Complaint: Patient states that she has been having headache on and off pressure in ears, and pressure like feeling in her sinuses with sore throat and at times she feels dizzy at times like the room is spinning States that she had a sinus thing last week States today she wasnt feeling any better so she came in to get checked Related Data Home Medications Medication Instructions Recorded Confirmed escitalopram oxalate 20 mg tablet 20 mg PO DAILY 05/21/23 05/21/23 famotidine 20 mg tablet 20 mg PO BID 05/21/23 05/21/23 Previous Rx's Medication Instructions Recorded fluticasone propionate 50 2 spray intranasal DAILY #16 grams 05/21/23 mcg/actuation nasal spray,suspension (Flonase Allergy Relief) meclizine 25 mg tablet 25 mg PO TID PRN dizziness #15 tabs 05/21/23 Allergies Allergy/AdvReac Type Severity Reaction Status Date / Time No Known Allergies Allergy Verified 05/21/23 19:57 Worker's Comp Is this a Worker's Comp case?: No [facility] Disclaimer: The information contained in this section may have been updated after the patient was seen, as this information can be updated by other users. Social History Smoking Status: Former smoker alcohol intake: never current occupational status: other Travel in the last 8 weeks: None ROS Obtained: Yes All systems reviewed & no additional complaints except as documented and Yes Systems reviewed as appropriate & no additional complaints except as documented Constitutional Constitutional: Reports system reviewed and no additional complaints, except as documented, Reports as per HPI and Reports headache(s) Eyes Eyes: Reports system reviewed and no additional complaints, except as documented, Reports as per HPI, Denies blurry vision, Denies change in vision, Denies loss of vision, Denies eye pain, Denies photophobia, Denies seeing flashes and Denies tunnel vision ENT Ears, Nose, Mouth, and Throat: Reports system reviewed and no additional complaints, except as documented, Reports as per HPI, Reports dizziness (on and off), Reports otalgia (feeling of fullness ), Reports headache(s), Reports nasal congestion and Reports vertigo Cardiovascular Cardiovascular: Reports system reviewed and no additional complaints, except as documented, Reports dyspnea on exertion and Denies syncope Respiratory Respiratory: Reports dyspnea on exertion Gastrointestinal Gastrointestingal: Reports system reviewed and no additional complaints, except as documented and as per HPI Musculoskeletal Musculoskeletal: Denies numbness Neurologic Neurologic: Reports system reviewed and no additional complaints, except as documented, Reports as per HPI, Denies confusion, Reports dizziness (on and off), Reports headache(s), Denies loss of vision, Denies numbness, Denies other visual disturbances, Denies syncope and Reports vertigo Physical Exam General General appearance: alert and in no apparent distress Eye Eye exam: Present normal appearance, PERRL and EOMI ENT ENT exam: Present mucous membranes moist Expanded ENT Exam TM/Canal exam: Left TM: bulging (clear fluid noted) and Right TM: cerumen impaction Chest Chest inspection: Present normal inspection and symmetric chest wall rise Respiratory Respiratory exam: Present normal lung sounds bilaterally; Absent respiratory distress or wheezes Cardiovascular Cardiovascular exam: Present regular rate, normal rhythm and normal heart sounds Neurological Exam Neurological exam: Present alert, oriented X3 and normal gait Medical Decision Making Gustabo Inquiry Pt receiving controlled substance: No [place] was queried for this patient: No Vital Signs: 05/21/23 19:40 Temperature 98.1 F Temperature Source Oral Pulse Rate [Right Radial] 95 H Respiratory Rate 19 Blood Pressure [Right Arm] 139/88 Blood Pressure Mean [Right Arm] 105 Blood Pressure Source [Right Arm] Automatic Cuff Blood Pressure Position [Right Arm] Sitting 02 Sat by Pulse Oximetry 100 Oxygen Delivery Method Room Air Lab Data Lab Results 05/21/23 19:55: Influenza Type A Ag Negative, Influenza Type B Ag Negative, Strep Scn Rapid Clinic Negative Orders (Tests/Meds): ORDERS Category Date Time Status Strep Screen Confirmation Stat Micro 05/21/23 19:55 Received Medical Decision Narrative: Patient states that dizziness improved after Meclizine
[2023-05-21 20:27] LABS: Adenovirus,PCR Not Detected (NotDetected); Coronavirus 19, PCR Not Detected (NotDetected); Coronavirus 229E Not Detected (NotDetected); Coronavirus NL63 Not Detected (NotDetected); Coronavirus OC43 Not Detected (NotDetected); Coronovirus HKU1,PCR Not Detected (NotDetected); Human Metapneumovirus Not Detected (NotDetected); Influenza A, PCR Not Detected (NotDetected); Influenza AH1, 2009 Not Detected (NotDetected); Influenza AH1, PCR Not Detected (NotDetected); Influenza AH3,PCR Not Detected (NotDetected); Influenza B, PCR Not Detected (NotDetected); Parainfluenza 1, PCR Not Detected (NotDetected); Parainfluenza 2, PCR Not Detected (NotDetected); Parainfluenza 3, PCR Not Detected (NotDetected); Parainfluenza 4, PCR Not Detected (NotDetected); Respiratory Syncytial Virus Not Detected (NotDetected)
[2023-05-21] MEDS: MECLIZINE 25MG TABLET 25 MG PO (20:27)
[2023-05-21 20:55] VITALS: BP 139/88; PULSE 95; RESP 19; TEMP 36.7; O2SAT 100
[2023-05-22 02:21] LABS: Rhinovirus/Enterovirus Detected (NotDetected)
== END 2023-05-21 20:40 | disposition home or self-care (01) ==
PROVIDERS: Emergency Provider Nurse Practitioner; PCP Nurse Practitioner Family
DX: R51.9 Headache, unspecified (principal); R42 Dizziness and giddiness; R09.81 Nasal congestion; H92.03 Otalgia, bilateral; J06.9 Acute upper respiratory infection, unspecified
CPT/HCPCS: 87581; 87632; 87635; 87798; 87804; 87880; 99212; 99214; G0463

== ENCOUNTER 2023-08-27 19:06 | Emergency (ER) | payer MEDICAID, SELFPAY ==
[2023-08-27 19:19] VITALS: BP 130/80; PULSE 80; RESP 16; TEMP 36.7; O2SAT 100; BMI 37.5
--- NOTE | 2023-08-27 19:22 | EXP.UTC ---
Discharge Plan Disposition Patient Disposition: Home, Self-Care Condition: Good Prescriptions Prescriptions: New methylprednisolone 4 mg Tablets,Dose Pack 4 mg PO DIRECTED 6 Days Qty: 21 0RF Rx Instructions: Take 1 pack as directed for 6 days No Action famotidine 20 mg tablet 20 mg PO BID Patient Comments: TAKE 1 TABLET BY MOUTH TWICE DAILY escitalopram oxalate 20 mg tablet 20 mg PO DAILY Patient Comments: TAKE 1 TABLET BY MOUTH EVERY DAY fluticasone propionate [Flonase Allergy Relief] 50 mcg/actuation spray,suspension 2 spray intranasal DAILY Qty: 16 0RF Rx Instructions: administer into each nostril daily meclizine 25 mg tablet 25 mg PO TID PRN (Reason: dizziness) Qty: 15 0RF Referrals Follow up/Referrals: Blair Loving DO [Staff Physician] - See instructions Wanda Wood APRN [Primary Care Provider] - See instructions Activity Restrictions/Add. Instructions Additional Instructions/Restrictions: Rest the extremity, Elevate the extremity as tolerated while you are resting. Take the medication as directed. Follow up with Dr. Loving (orthopedics). I put in a referral but you need to call his office and schedule an appointment. Follow up with your regular doctor. GO TO THE ER FOR ANY WORSENING SYMPTOMS Clinical Impressions Clinical Impression: Epicondylitis, lateral, left Stand Alone Forms Stand Alone Forms: Work/School Release Instructions Patient Instructions: Lateral Epicondylitis, DI for Lateral Epicondylitis (Tennis Elbow) Discharge ED Provider: Carlos Roa [facility] General Stated complaint: Left arm swollen and painful no injury Mode of Arrival: Ambulatory Source of Information: Patient Limitations: No Limitations Time Seen by Provider: 08/27/23 19:22 HEENT Symptoms (Recalled from RN notes): No Resp Symptoms (Recalled from RN notes): No Skin Symptoms (Recalled from RN notes): No MS Symptoms (Recalled from RN notes): Yes Functional Status (Recalled from RN notes): wnl History of Present Illness Provider Complaint: Patient reports left elbow to wrist pain for a couple of weeks now. States that it has just progressively gotten worse. She denies any known injury. Related Data Home Medications Medication Instructions Recorded Confirmed escitalopram oxalate 20 mg tablet 20 mg PO DAILY 05/21/23 05/21/23 famotidine 20 mg tablet 20 mg PO BID 05/21/23 05/21/23 Previous Rx's Medication Instructions Recorded fluticasone propionate 50 2 spray intranasal DAILY #16 grams 05/21/23 mcg/actuation nasal spray,suspension (Flonase Allergy Relief) meclizine 25 mg tablet 25 mg PO TID PRN dizziness #15 tabs 05/21/23 methylprednisolone 4 mg tablets in 4 mg PO DIRECTED 6 days #21 tabs 08/27/23 a dose pack Allergies Allergy/AdvReac Type Severity Reaction Status Date / Time No Known Allergies Allergy Verified 05/21/23 19:57 Worker's Comp Is this a Worker's Comp case?: No [facility] Disclaimer: The information contained in this section may have been updated after the patient was seen, as this information can be updated by other users. Social History Smoking Status: Former smoker alcohol intake: never current occupational status: other Travel in the last 8 weeks: None ROS Obtained: Yes All systems reviewed & no additional complaints except as documented Constitutional Constitutional: Denies chills and Denies fever(s) Eyes Eyes: Denies eye discharge ENT Ears, Nose, Mouth, and Throat: Denies dizziness, Denies otalgia and Denies sore throat Cardiovascular Cardiovascular: Denies chest pain Respiratory Respiratory: Denies shortness of breath, Denies chest congestion, Denies cough, Denies stridor and Denies wheezing Gastrointestinal Gastrointestingal: Denies nausea or vomiting Musculoskeletal Musculoskeletal: Reports as per HPI Integumentary/Breasts Skin/Breast: Denies redness, Denies rash and Denies wounds Neurologic Neurologic: Denies dizziness and Denies paresthesias Allergic/Immunologic Allergic/Immunologic: Denies wheezing Physical Exam General General appearance: alert and in no apparent distress Head Head exam: atraumatic, normocephalic and normal inspection Eye Eye exam: Present normal appearance, PERRL and EOMI ENT ENT exam: Present normal exam, normal oropharynx, mucous membranes moist, TM's normal bilaterally and normal external ear exam Neck Neck exam: Present normal inspection, full ROM and trachea midline; Absent meningismus or lymphadenopathy Chest Chest inspection: Present normal inspection and symmetric chest wall rise; Absent tenderness Respiratory Respiratory exam: Present normal lung sounds bilaterally; Absent respiratory distress Cardiovascular Cardiovascular exam: Present regular rate and normal rhythm; Absent JVD Abdominal Exam Abdominal exam: Present soft and normal bowel sounds; Absent distention, tenderness or guarding Extremities Exam Extremities exam: Present normal capillary refill; Absent calf tenderness Expanded Upper Extremity Exam Left: Shoulder exam: Present normal inspection and full ROM; Absent tenderness or tenderness over AC joint Elbow exam: Present full ROM and tenderness; Absent swelling, abrasion, laceration, ecchymosis, deformity, crepitus, dislocation, erythema, effusion, pain w/ pronation/supination or tenderness over radial head Forearm/Wrist exam: Present normal inspection and full ROM; Absent tenderness Hand exam: Present normal inspection and full ROM; Absent tenderness Neuromotor exam: Normal wrist extension, thumb opposition, thumb IP flexion, thumb adduction and fingers 2-5 abduction Neurosensory exam: Normal radial nerve, ulnar nerve and median nerve Vascular exam: Normal capillary refill, radial pulse and ulnar pulse Back Exam Back exam: Present normal inspection; Absent tenderness Neurological Exam Neurological exam: Present alert and oriented X3 Psychiatric Psychiatric exam: Present normal affect and normal mood Skin Skin exam: Present warm, dry, intact and normal color Lymphatic Lymphatic Findings: no adenopathy Medical Decision Making Medical Records Medical records reviewed: No I reviewed the patient's medical records. [place] Inquiry Pt receiving controlled substance: No Vital Signs: 08/27/23 19:19 Temperature 98.0 F Temperature Source Oral Pulse Rate [Radial] 80 Respiratory Rate 16 Blood Pressure [Right Arm] 130/80 Blood Pressure Mean [Right Arm] 96 Blood Pressure Source [Right Arm] Automatic Cuff Blood Pressure Position [Right Arm] Sitting 02 Sat by Pulse Oximetry 100 Oxygen Delivery Method Room Air
[2023-08-27 19:54] VITALS: BP 130/80; PULSE 80; RESP 16; TEMP 36.7; O2SAT 100
== END 2023-08-27 19:58 | disposition home or self-care (01) ==
PROVIDERS: Emergency Provider Nurse Practitioner Family; PCP Nurse Practitioner Family
DX: M77.12 Lateral epicondylitis, left elbow (principal); M25.522 Pain in left elbow; M25.532 Pain in left wrist
CPT/HCPCS: 99212; 99214; G0463

== ENCOUNTER 2023-09-04 15:19 | Outpatient (CLI) | payer MEDICAID, SELFPAY ==
--- NOTE | 2023-09-04 15:23 | XR_ITS ---
FINAL REPORT CLINICAL HISTORY: lt elbow pain COMPARISON: None FINDINGS: LEFT ELBOW: 3 images of the left elbow were obtained. There is no evidence of fracture or dislocation. The joint spaces are intact. There is no soft tissue abnormality identified. IMPRESSION: No acute bony abnormality. Reviewed, Interpreted and Dictated by Reese Coughlin III, MD Transcribed by Stephani Trent Authenticated and [facility]
== END 2023-09-04 23:59 | disposition home or self-care (01) ==
LOC: RAD 15:20
PROVIDERS: PCP Internal Medicine Adolescent Medicine; Visit Provider Orthopaedic Surgery
DX: M77.12 Lateral epicondylitis, left elbow (principal)
CPT/HCPCS: 73080

== ENCOUNTER 2023-10-29 11:21 | Outpatient (POV) | payer MEDICAID, SELFPAY | END 2023-10-29 23:59 | disposition home or self-care (01) | LOC: SC 11:21 | PROVIDERS: Visit Provider Specialist/Technologist | DX: Z00.00 Encounter for general adult medical examination without abnormal findings (principal) ==

== ENCOUNTER 2023-11-14 08:24 | Outpatient (CLI) | payer MEDICAID, SELFPAY ==
--- NOTE | 2023-11-14 08:26 | CT_ITS ---
FINAL REPORT TECHNIQUE: Thin section axial CT images with coronal and sagittal reformats were performed through the neck. This study was performed with techniques to keep radiation doses as low as reasonably achievable (ALARA). Individualized dose reduction techniques using automated exposure control or adjustment of mA and/or kV according to the patient's size were employed. CLINICAL HISTORY: SNHL, neck pain COMPARISON: None FINDINGS: CT NECK SOFT TISSUE: There are multiple small scattered cervical nodes present, not enlarged but more numerous than typically expected. Salivary glands are normal. The nasopharynx, oropharynx, and larynx are unremarkable in appearance. The salivary glands are unremarkable. Thyroid gland is unremarkable. There is partial visualization on the most inferior images of a right paratracheal enlarged lymph node, which measures 1.8 cm in diameter, and is only partially imaged. IMPRESSION: Multiple small scattered cervical nodes are present, not enlarged but more numerous than typically expected. Partial visualization of a right paratracheal enlarged lymph node on the most inferior images, 1.[address] of the chest would be helpful for further evaluation of this region if clinically indicated. Reviewed, Interpreted and Dictated by Jatin Adan MD Transcribed by Stephani Trent Authenticated and [facility]
== END 2023-11-14 23:59 | disposition home or self-care (01) ==
LOC: RAD 08:24
PROVIDERS: Visit Provider Nurse Practitioner
DX: H90.3 Sensorineural hearing loss, bilateral (principal); M54.2 Cervicalgia
CPT/HCPCS: 70490

== ENCOUNTER 2024-03-02 07:57 | Outpatient (CLI) | payer MEDICAID, SELFPAY ==
--- NOTE | 2024-03-02 08:00 | US_ITS ---
FINAL REPORT CLINICAL HISTORY: .abd pain COMPARISON: None FINDINGS: Sonographic images of the abdomen were obtained. There is fatty infiltration of the liver. There are several echogenic foci in the gallbladder without shadowing, likely polyps. The portal vein is at the upper limits of normal measuring 13 mm. The common hepatic duct measures 3 mm, which is within normal limits. The pancreas is partially obscured. The spleen size is normal. The right kidney measures 12.0 in length. The left kidney measures 11.2 in length. There is normal renal echogenicity. There is no evidence of hydronephrosis. The aorta has an unremarkable appearance. Limited images of the inferior vena cava are unremarkable. IMPRESSION: Fatty liver. Portal vein upper limits of normal. Probable polyps in the gallbladder. Reviewed, Interpreted and Dictated by Reese Coughlin III, MD Transcribed by Sydni Hartmann Authenticated and [facility]
== END 2024-03-02 23:59 | disposition home or self-care (01) ==
LOC: RAD 07:58
PROVIDERS: PCP Internal Medicine Adolescent Medicine; Visit Provider Physician Assistant
DX: R10.13 Epigastric pain (principal)
CPT/HCPCS: 76700

== ENCOUNTER 2024-03-19 10:02 | Outpatient (CLI) | payer MEDICAID, SELFPAY ==
--- NOTE | 2024-03-19 10:03 | NM_ITS ---
FINAL REPORT CLINICAL HISTORY: Right upper quad pain 10:20AM 8.33 MCI TC CHOLETEC 1.9 MCG CCK NO PAIN WITH CCK FINDINGS: The patient was injected with 8.33 mCi of technetium 99m Choletec and subsequently 1.9 mcg of CCK. Images of the abdomen were obtained for one hour. There is normal distribution of radiopharmaceutical throughout the liver. Sequential images demonstrate progressive accumulation of activity within the gallbladder. There is a calculated ejection fraction of 74%, within normal limits. IMPRESSION: Ejection fraction within normal limits. Reviewed, Interpreted and Dictated by Jatin Adan MD Transcribed by Sydni Hartmann Authenticated and [facility]
[2024-03-19] MEDS: SODIUM CHLORIDE 0.9% 10ML SYR (RAD ONLY) 10 ML IV (10:58)
[2024-03-19] MEDS: ISOTOPE CHOLETECH;1 DOSE (UP TO 15 MCI) IV (10:58)
[2024-03-19] MEDS: SINCALIDE 1.9 MCG in 0.9 % SODIUM CHLORIDE 50 ML 100 MCG IV (10:58)
== END 2024-03-19 23:59 | disposition home or self-care (01) ==
LOC: RAD 10:03
PROVIDERS: PCP Internal Medicine Adolescent Medicine; Visit Provider Surgery
DX: R10.11 Right upper quadrant pain (principal)
CPT/HCPCS: 78227; A9537; J2805

== ENCOUNTER 2024-05-26 08:16 | Day surgery (SDC) | payer MEDICAID, SELFPAY ==
[2024-05-24 13:31] VITALS: BMI 35.6
[2024-05-26 08:35] VITALS: BP 105/54; PULSE 72; RESP 18; TEMP 36.8; O2SAT 95
[2024-05-26 08:41] LABS: Urine Pregnancy, HCG Qual. Negative (Negative)
[2024-05-26] MEDS: LACTATED RINGERS 1000ML 1,000 ML 50 ML IV (08:46)
--- NOTE | 2024-05-26 09:32 | P.HP_ITS ---
History of Present Illness *Admission Date: 05/26/24 *Reason for visit:: GERD/heartburn and nausea and chronic abdominal pain, bright red blood per *History of present illness: Ms. Arrieta is a 28-year-old female who is here for diagnostic upper endoscopy and colonoscopy. The patient does have heartburn, reflux and nausea. She also has chronic abdominal pain and some bright red rectal bleeding. She has had bloating. The examination is deemed medically necessary for diagnostic EGD and colonoscopy. The patient has been seen, interviewed and examined prior to the procedure by both myself and the anesthesia provider. [facility] Disclaimer: The information contained in this section may have been updated after the patient was seen, as this information can be updated by other users. Medical History Anxiety and depression History of gastroesophageal reflux (GERD) Neck pain, bilateral Sensorineural hearing loss (SNHL) of both ears Bilateral serous otitis media Otitis externa of right ear Dysfunction of both eustachian tubes Impacted cerumen, right ear Ear drainage right Right ear pain Surgical History History of Family History Other No significant family history Social History (Updated 05/26/24 @ 08:42 by Brigitte Wood RN) Smoking Status: Former smoker alcohol intake: never substance use type: denies use current occupational status: employed Travel in the last 8 weeks: None caffeine: No Have you lived/traveled outside US in past 30 days?: No Contact w/someone who lives/traveled outside US past 30 days?: No Exposure to someone with infectious disease in past 14 days?: No Do you have a fever (greater than 100.4 F or 38 C)?: No Have you tested positive for COVID-19: Yes Exposed to someone with COVID-19 in past 14 days?: No Do you have a sore throat?: No Do you have a cough?: No Do you have any weakness?: No Are you experiencing any nausea/vomitting?: No Do you have any diarrhea?: No Are you experiencing any unusual bleeding?: No Do you have any muscle aches/pain?: No Do you have any abdominal pain?: No Are you experiencing loss of taste or smell?: No Other Medical History Have you received the Flu Vaccine for this season: No Have you received the Pneumonia Vaccine: No Review of Systems Review of Systems Review of systems (narrative): Negative *Cardiovascular Comments: Negative *Gastrointestinal Comments: Negative *Genitourinary Comments: Negative *Musculoskeletal Comments: Negative *Neurologic Comments: Negative Meds Home Medications and Allergies Home Medications ?Medication ?Instructions ?Recorded ?Confirmed ?Type escitalopram oxalate 20 mg tablet 20 mg PO DAILY 04/15/24 05/26/24 History pantoprazole 40 mg tablet,delayed 40 mg PO ONCE 04/15/24 05/26/24 History release peg 3350-electrolytes 236 240 ml PO Q10M colonscopy #4,000 mL 05/11/24 05/24/24 Rx gram-22.74 gram-6.74 gram-5.86 gram solution (Golytely) New Prescriptions to Start Prescriptions: Allergies Allergy/AdvReac Type Severity Reaction Status Date / Time No Known Allergies Allergy Verified 05/26/24 08:34 Exam Data for Last 24 hours Vital signs and Labs for Last 24 Hours: Temp Pulse Resp BP Pulse Ox 98.3 F 72 18 105/54 L 95 05/26/24 08:35 05/26/24 08:35 05/26/24 08:35 05/26/24 08:35 05/26/24 08:35 Laboratory Results - last 24 hr 05/26/24 08:31: Urine HCG, Qual Negative I & O for Last 24 hours: Intake & Output 05/23/24 05/24/24 05/25/24 05/26/24 23:59 23:59 23:59 23:59 Weight 209 lb 0.007 oz *Routine HEENT Exam Head: Present normocephalic Eye: Present EOMI and PERRL ENT: Present mucous membranes moist *Routine Neck Exam Neck: Present supple *Routine Respiratory Exam Respiratory: Present CTA bilaterally *Routine Cardiovascular Exam Cardiovascular: Present RRR *Routine Abdominal Exam Abdominal: Present soft and normoactive bowel sounds; Absent tenderness *Routine Rectal Exam Rectal:: deferred *Routine Genitalia Exam Genitalia:: deferred *Routine Extremities Exam Extremities: Absent cyanosis, clubbing or edema *Routine Skin Exam Skin: Present warm; Absent rash *Routine Neurological Exam Neurological: Present alert and oriented X3 Assessment and Plan *Assessment and plan (1) Nausea: Status: Acute Category: Medical Code(s): R11.0 - Nausea (2) Acid reflux: Status: Acute Category: Medical Code(s): K21.9 - Gastro-esophageal reflux disease without esophagitis (3) Heartburn: Status: Acute Category: Medical Code(s): R12 - Heartburn (4) Generalized abdominal pain: Status: Acute Category: Medical Code(s): R10.84 - Generalized abdominal pain (5) Bloating: Status: Acute Category: Medical Code(s): R14.0 - Abdominal distension (gaseous) (6) Rectal bleeding: Status: Acute Category: Medical Code(s): K62.5 - Hemorrhage of anus and rectum Plan A/P: 1. Nausea/GERD, generalized abdominal pain, bloating and rectal bleeding is the preprocedural diagnosis. The patient will be anesthetized/sedated using MAC sedation. The patient has been seen and examined. Cardiac and lung assessment prior to the examination is stable. Proceed with planned diagnostic EGD and colonoscopy
[2024-05-26 09:42] VITALS: O2SAT 100
--- NOTE | 2024-05-26 09:50 | HMH.PROCNOTE ---
[facility] Procedure Note Date: 05/26/24 Time: 09:57 Procedure Note:: Upper Endoscopy Procedure Report: Esophagogastroduodenoscopy with cold biopsies Endoscopost: Ray Fisher II, MD Referring Physician: Guicho Abel M.D. Date of Procedure: May 26, 2024 Equipment: Olympus GIF 190 standard upper endoscope Sedation: MAC sedation Indications: Ms. Arrieta is a 28-year-old female who is here for diagnostic upper endoscopy and colonoscopy. The patient reports heartburn, reflux and nausea. She does report some bloating and belching. She has been on pantoprazole without improvement of symptoms. She reports no dysphagia. She does report generalized abdominal pain but some epigastric pain and dyspepsia. She also has history of constipation and may skip 3 to 4 days without a bowel movement. She has noted bright red rectal bleeding over the last couple of months and this has happened intermittently for the Last couple of years. She reports no vomiting. She reports no family history of celiac disease, IBD or colon cancer. Procedure: Prior to the procedure, a history and physical exam was performed, and patient's medications and allergies were reviewed. The risks, benefits and alternatives of the sedation and procedure were discussed with the patient. All questions were answered and informed consent was obtained. The patient was brought to the procedure room. Patient identification and proposed procedure were verified by the physician and the nurse. The patient was placed in a left lateral decubitus position and the scope was passed under direct vision. Throughout the procedure, the patient's blood pressure, pulse, and oxygen saturations were monitored continuously. The upper GI endoscopy was accomplished without difficulty. The patient tolerated the procedure well. Findings: The scope was passed directly into the upper esophagus and advanced to the third portion of the duodenum. The post bulbar duodenum and duodenal bulb were normal with normal mucosa and conniventes. The scope was withdrawn through a normal duodenal bulb and pylorus into the stomach. There was minimal reactive gastropathy of antrum. The body and fundus of the stomach were normal. Biopsies were taken from the antrum. There was a fundic gland polyp in the body of the stomach along the anterior wall that was removed via cold biopsy. Upon retroflexion there was no hiatal hernia. The scope was then withdrawn into the esophagus. There was no evidence of reflux esophagitis or Holcomb's. There were some tertiary contractions and evidence of mild esophageal dysmotility. The remainder of the esophageal mucosa was normal. Impression: 1. Nonerosive GERD with mild esophageal dysmotility 2. Gastric fundic polyp 3. Minimal antral reactive gastropathy Plan: I will follow-up the biopsies. The patient does have functional dyspepsia and functional GERD. I do feel that most of her symptoms of dyspepsia and GERD are related to and driven by lower intestinal gas pressure gradients/high gas pressure buildup resulting in backflow of bile and peptic fluid from the duodenum into the stomach (duodenal reflux). This gas production (carbon dioxide, hydrogen, methane, etc.) from the lower intestinal tract is the byproduct of colonic bacterial fermentation. This colonic fermentation occurs when there is more carbohydrate (dietary starches, sugars and high residue plant fiber) substrate that does not get digested (in the middle or small intestine) or occurs when there is colonic fecal buildup and colonic bacterial overgrowth. This indeed leads to bloating and the gas pressure buildup with gas pressure gradients that do drive backflow and dyspepsia. I will proceed with diagnostic colonoscopy.
--- NOTE | 2024-05-26 09:59 | HMH.PROCNOTE ---
[facility] Procedure Note Date: 05/26/24 Time: 10:12 Procedure Note:: Colonoscopy Procedure Report: Colonoscopy with monopolar ablation/coagulation of internal hemorrhoids Endoscopist: Ray Fisher II, MD Referring physician: Guicho Abel M.D. Date of Procedure: May 26, 2024 Equipment: Olympus 190 variable stiffness pediatric colonoscope Sedation: MAC sedation Indication: Ms. Arrieta is a 28-year-old female who is here for diagnostic upper endoscopy and colonoscopy. The patient reports heartburn, reflux and nausea. She does report some bloating and belching. She has been on pantoprazole without improvement of symptoms. She reports no dysphagia. She does report generalized abdominal pain but some epigastric pain and dyspepsia. She also has history of constipation and may skip 3 to 4 days without a bowel movement. She has noted bright red rectal bleeding over the last couple of months and this has happened intermittently for the Last couple of years. She reports no vomiting. She reports no family history of celiac disease, IBD or colon cancer. Procedure: Prior to the procedure, a history and physical exam was performed, and patient's medications and allergies were reviewed. The risks, benefits and alternatives of the sedation and procedure were discussed with the patient. All questions were answered and informed consent was obtained. The patient was brought to the procedure room. Patient identification and proposed procedure were verified by the physician and the nurse. The patient was placed in a left lateral decubitus position and the scope was passed under direct vision. Throughout the procedure, the patient's blood pressure, pulse, and oxygen saturations were monitored continuously. The colonoscopy was accomplished without difficulty. The patient tolerated the procedure well. Findings: On digital rectal examination there was normal rectal tone. There were no external hemorrhoids. The colonoscope was introduced through the anal canal to the rectum and advanced to the cecum. The ileocecal valve and appendiceal orifice were identified. The scope was advanced a short distance into the ileum which appeared grossly normal. The scope was then withdrawn into the colon. The cecum, ascending, transverse, descending, sigmoid and rectum were grossly normal. There were no mucosal abnormalities identified. Upon retroflexion within the rectum there were grade 2 internal hemorrhoids. The columns of hemorrhoids were ablated/coagulated using monopolar ablation to destruction. The preparation was excellent throughout with Westpoint Preparation Score of 9. The cecal time was 9 minutes. Impression: 1. Normal colonoscopy with intubation of the terminal ileum 2. Grade 2 internal hemorrhoids status post monopolar ablation/coagulation Plan: I would encourage continuation of the fiber bowel regimen (combined MiraLAX plus Metamucil). We will discuss additional treatment options.
--- NOTE | 2024-05-26 10:04 | P.PNANES_ITS ---
[facility] Disclaimer: The information contained in this section may have been updated after the patient was seen, as this information can be updated by other users. Medical History Anxiety and depression History of gastroesophageal reflux (GERD) Neck pain, bilateral Sensorineural hearing loss (SNHL) of both ears Bilateral serous otitis media Otitis externa of right ear Dysfunction of both eustachian tubes Impacted cerumen, right ear Ear drainage right Right ear pain Surgical History History of Family History Other No significant family history Social History (Updated 05/26/24 @ 08:42 by Brigitte Wood RN) Smoking Status: Former smoker alcohol intake: never substance use type: denies use current occupational status: employed Travel in the last 8 weeks: None caffeine: No Have you lived/traveled outside [place] in past 30 days?: No Contact w/someone who lives/traveled outside US past 30 days?: No Exposure to someone with infectious disease in past 14 days?: No Do you have a fever (greater than 100.4 F or 38 C)?: No Have you tested positive for COVID-19: Yes Exposed to someone with COVID-19 in past 14 days?: No Do you have a sore throat?: No Do you have a cough?: No Do you have any weakness?: No Are you experiencing any nausea/vomitting?: No Do you have any diarrhea?: No Are you experiencing any unusual bleeding?: No Do you have any muscle aches/pain?: No Do you have any abdominal pain?: No Are you experiencing loss of taste or smell?: No [facility] Anesthesia Checklist Patient Identification Patient Identification: Verbal (Name & ) Structural Data Admitted From: Home Planned Operative Procedure/s: egd,colonoscopy Consent for Planned Operative Procedure(s) Verified: Yes NPO Status Verified Time NPO: 00:00 Airway Assessment Mallampati Score:: Class II C-Spine Mobility Assessed: Yes TMJ Mobility Assessed: Yes Dentition: Good Dentition Neurological Assessment Level of Consciousness: Awake, Alert and Appropriate Anesthesia Plan Anesthesia Risk discussed: Yes Anesthesia Plan: Verified ASA Class: II Anesthesia Type: MAC
[2024-05-26 10:16] VITALS: BP 106/55; PULSE 78; RESP 18; TEMP 36.1; O2SAT 93
[2024-05-26 10:26] VITALS: BP 126/78; PULSE 73; RESP 18; O2SAT 99
[2024-05-26 10:36] VITALS: BP 127/80; PULSE 73; RESP 18; O2SAT 99
[2024-05-26 10:55] VITALS: BP 111/84; PULSE 70; RESP 18; O2SAT 98
== END 2024-05-26 10:55 | disposition home or self-care (01) ==
PROVIDERS: PCP Internal Medicine Adolescent Medicine; Visit Provider Internal Medicine Gastroenterology
PROC: 0DJ08ZZ Inspection of Upper Intestinal Tract, Via Natural or Artificial Opening Endoscopic (ICD-10-PCS; CPT 45378; principal; 2024-05-26 10:00)
DX: K22.4 Dyskinesia of esophagus (principal); K31.7 Polyp of stomach and duodenum; K31.9 Disease of stomach and duodenum, unspecified; K64.1 Second degree hemorrhoids; R11.0 Nausea; K21.9 Gastro-esophageal reflux disease without esophagitis; R12 Heartburn; R10.84 Generalized abdominal pain; R14.0 Abdominal distension (gaseous); K62.5 Hemorrhage of anus and rectum; R10.9 Unspecified abdominal pain
CPT/HCPCS: 43239; 45388; 81025; J7120

== ENCOUNTER 2024-05-31 13:06 | Outpatient (CLI) | payer MEDICAID, SELFPAY ==
--- NOTE | 2024-05-31 13:06 | CT_ITS ---
FINAL REPORT TECHNIQUE: Multiple axial CT sections were performed from the foramen magnum to the vertex. Coronal reformatted images were also obtained. Precontrast and postcontrast injection images were obtained. This study was performed with technique to keep radiation doses as low as reasonably achievable, (ALARA). Individualized dose reduction techniques using automated exposure control or adjustment of mA and/or kV according to the patient size were employed. CLINICAL HISTORY: hearing loss, migraines FINDINGS: The ventricles are normal in size. There is no evidence of hemorrhage. No masses are identified. No extra-axial fluid collection is seen. The paranasal sinuses are well aerated. Mastoid air cells are well aerated. The ossicles are intact in the bilateral middle ear cavities. No osseous abnormality is seen on the bone window images. Postcontrast images demonstrate no abnormal enhancement. IMPRESSION: Unremarkable CT of the head with and without contrast. Reviewed, Interpreted and Dictated by Jatin Adan MD Transcribed by Starr Pedraza Authenticated and [facility]
[2024-05-31] MEDS: IOPAMIDOL-370 (76%);100ML BOTTLE 100 ML IV (13:51)
[2024-05-31] MEDS: SODIUM CHLORIDE 0.9% 10ML SYR (RAD ONLY) 10 ML IV (13:51)
== END 2024-05-31 23:59 | disposition home or self-care (01) ==
LOC: RAD 13:06
PROVIDERS: PCP Internal Medicine Adolescent Medicine; Visit Provider Student in an Organized Health Care Education/Training Program
DX: H90.3 Sensorineural hearing loss, bilateral (principal)
CPT/HCPCS: 70470; Q9967

== ENCOUNTER 2024-06-04 21:35 | Emergency (ER) | payer MEDICAID, SELFPAY ==
[2024-06-04 21:41] VITALS: BP 134/80; RESP 18; TEMP 36.7; O2SAT 98; BMI 35.9
--- NOTE | 2024-06-04 22:13 | XR_ITS ---
PROCEDURE INFORMATION: Exam: XR Right Tibia and Fibula Exam date and time: 06/04/2024 10:22 PM Age: 28 years old Clinical indication: Injury or trauma; Fall; Blunt trauma; Lower leg; Right; Additional info: Fall through deck board, anterior pain TECHNIQUE: Imaging protocol: Radiologic exam of the right tibia and fibula. Views: 2 views. COMPARISON: CR XR TIBIA FIBULA RT 2V 06/04/2024 10:22 PM FINDINGS: Bones/joints: The tibia and fibula are intact. No acute fracture. The knee and ankle are normally aligned. Soft tissues: Very mild anterior subcutaneous edema. IMPRESSION: No acute fracture.
--- NOTE | 2024-06-04 22:13 | XR_ITS ---
PROCEDURE INFORMATION: Exam: XR Right Ankle Exam date and time: 06/04/2024 10:22 PM Age: 28 years old Clinical indication: Injury or trauma; Fall; Blunt trauma; Ankle; Right; Additional info: Fall through deck board, anterior pain TECHNIQUE: Imaging protocol: Radiologic exam of the right ankle. Views: 3 or more views. COMPARISON: CR XR TIBIA FIBULA RT 2V 06/04/2024 10:22 PM FINDINGS: Bones/joints: The ankle mortise is intact and normally aligned. The talar dome is normal. No acute fracture. No significant degenerative change. Soft tissues: Normal. IMPRESSION: No acute findings.
--- NOTE | 2024-06-04 22:27 | HMH.EDGENADL ---
Discharge Plan Disposition Patient Disposition: Home, Self-Care Prescriptions Prescriptions: New cephalexin 500 mg capsule 1,000 mg PO BID 7 Days Qty: 28 0RF No Action pantoprazole 40 mg tablet,delayed release (DR/EC) 40 mg PO ONCE Patient Comments: TAKE 1 TABLET BY MOUTH DAILY IN THE MORNING ON AN EMPTY STOMACH escitalopram oxalate 20 mg tablet 20 mg PO DAILY buspirone 10 mg tablet 10 mg PO BID Qty: 60 12RF Rx Instructions: Please take 1 tablet p.o. nightly x 5 to 7 days and then 1 tablet p.o. twice daily thereafter Referrals Follow up/Referrals: Blair Loving DO [Staff Physician] - See instructions Guicho Abel MD [Primary Care Provider] - See instructions Activity Restrictions/Add. Instructions Additional Instructions/Restrictions: Right leg injury without fracture. Call your family doctor to establish care for this visit to the emergency department and schedule follow-up within 48 hours to ensure improvement. If you have any worsening of your condition or any other concerning signs or symptoms, return to the emergency department or your primary care doctor for further evaluation. Clinical Impressions Clinical Impression: Right leg pain, Fall Print Language Print Language: [place] Discharge ED Provider: Kelechi Guardado General Adult HPI <Kelechi Guardado MD - Last Filed: 06/04/24 23:04> General Chief complaint: Extremity Injury, Lower Stated complaint: AO 06/03/242029 right leg injury Time Seen by Provider: 06/04/24 21:48 Mode of Arrival: Ambulatory Source of Information: Patient Description of Symptoms (Recalled from ER Triage Doc. by RN): Pt presents for evaluation of right leg injury. Pt states she fell through a wood porch. Pt's right leg is swollen and has abrasions. Pt is unsure if t-dap is utd. History of Present Illness HPI narrative: Please note that above description of symptoms, in this electronic medical record under categorization of recalled from ER triage doctor by RN are reflective of an initial nursing assessment, however, is not reflective of my full history and physical exam that was personally taken and clarified. Consequentially, this preceding description of symptoms, which may include the patient's categorized chief complaint in the EMR, do not reflect my personal clinical impression, and the ultimate description of history of present illness and patient stated complaints should be deferred to this section of the note. Unless stated otherwise or congruent with this section of the note, additional signs, symptoms, or incongruence should be interpreted as inaccurate with my clinical impression. Related Data Home Medications ?Medication ?Instructions ?Recorded ?Confirmed escitalopram oxalate 20 mg tablet 20 mg PO DAILY 04/15/24 06/04/24 pantoprazole 40 mg tablet,delayed 40 mg PO ONCE 04/15/24 06/04/24 release Previous Rx's ?Medication ?Instructions ?Recorded buspirone 10 mg tablet 10 mg PO BID #60 tabs 05/26/24 cephalexin 500 mg capsule 1,000 mg (2 x 500 mg) PO BID 7 06/04/24 days #28 caps Allergies Allergy/AdvReac Type Severity Reaction Status Date / Time No Known Allergies Allergy Verified 06/04/24 21:45 COUNT INCLUDES THE [facility] <Kelechi Guardado MD - Last Filed: 06/04/24 23:04> COUNT INCLUDES THE [facility] Disclaimer: The information contained in this section may have been updated after the patient was seen, as this information can be updated by other users. Medical History (Updated 06/04/24 @ 22:30 by Kelechi Guardado MD) Anxiety and depression History of gastroesophageal reflux (GERD) Neck pain, bilateral Sensorineural hearing loss (SNHL) of both ears Bilateral serous otitis media Otitis externa of right ear Dysfunction of both eustachian tubes Impacted cerumen, right ear Ear drainage right Right ear pain Surgical History History of Family History Other No significant family history Social History Smoking Status: Never smoker alcohol intake: never substance use type: denies use current occupational status: employed Travel in the last 8 weeks: None caffeine: No Have you lived/traveled outside US in past 30 days?: No Contact w/someone who lives/traveled outside US past 30 days?: No Exposure to someone with infectious disease in past 14 days?: No Do you have a fever (greater than 100.4 F or 38 C)?: No Have you tested positive for COVID-19: No Exposed to someone with COVID-19 in past 14 days?: No Do you have a sore throat?: No Do you have a cough?: No Do you have any weakness?: No Do you have any diarrhea?: No Are you experiencing any unusual bleeding?: No Do you have any muscle aches/pain?: No Do you have any abdominal pain?: No Are you experiencing loss of taste or smell?: No Other Medical History Have you received the Flu Vaccine for this season: No Have you received the Pneumonia Vaccine: No <Kelechi Guardado MD - Last Filed: 06/04/24 23:04> ROS Obtained: Yes All systems reviewed & no additional complaints except as documented Physical Exam <Kelechi Guardado MD - Last Filed: 06/04/24 23:04> General General appearance: alert Head Head exam: atraumatic and normocephalic Eye Eye exam: Present normal appearance, PERRL and EOMI Neck Neck exam: Present normal inspection, full ROM and trachea midline Respiratory Respiratory exam: Absent respiratory distress, wheezes, stridor, accessory muscle use or prolonged expiratory phase Cardiovascular Cardiovascular exam: Present other (Pulses equal symmetric in upper and lower extremities) Abdominal Exam Abdominal exam: Present soft; Absent distention, tenderness or pulsatile mass Extremities Exam Extremities exam: Present other (Per MDM) Neurological Exam Neurological exam: Present alert, oriented X3 and CN II-XII intact; Absent motor sensory deficit Skin Skin exam: Present warm and dry; Absent diaphoresis or erythema Medical Decision Making <Kelechi Guardado MD - Last Filed: 06/04/24 23:04> Medical Records Medical records reviewed: Yes I reviewed the patient's medical records. Screening: Per USPSTF and CDC recommendations, given the prevalence of disease in our region, it is our hospital?s policy to screen for HIV and viral Hepatitis for all patients aged 18 and over and those with ongoing risk factors. [place] Inquiry Pt receiving controlled substance: No [place] was queried for this patient: No Vital Signs: 06/04/24 21:41 06/04/24 22:45 Temperature 98.0 F 98 F Temperature Source Temporal Artery Scan Oral Pulse Rate 85 Respiratory Rate 18 18 Blood Pressure 117/69 Blood Pressure [Right Arm] 134/80 Blood Pressure Mean [Right Arm] 98 Blood Pressure Source [Right Arm] Automatic Cuff Blood Pressure Position Sitting Blood Pressure Position [Right Arm] Sitting 02 Sat by Pulse Oximetry 98 Oxygen Delivery Method Room Air Room Air Orders (Tests/Meds): ED MEDICATIONS Discontinued Medications Generic Name Dose Route Start Last Admin Trade Name Liam PRN Reason Stop Dose Admin Acetaminophen 1,000 mg 06/04/24 22:13 06/04/24 22:30 Acetaminophen 500mg Tab PO 06/04/24 22:14 1,000 mg ONCE ONE Administration Cephalexin HCl 1,000 mg 06/04/24 22:43 06/04/24 22:49 Cephalexin 500mg Capsule PO 06/04/24 22:44 1,000 mg ONCE ONE Administration Tetanus/Reduced Diphtheria/Acell Pertussis 0.5 ml 06/04/24 22:43 06/04/24 22:49 Tet/Diphth/Pert-Adult 0.5ml Syringe IM 06/04/24 22:44 0.5 ml .ONCE ONE Administration ORDERS Category Date Time Status Ankle XR -Right minimum 3 Views [XR ankle RT min 3V] Exams 06/04/24 22:13 Taken Stat Fibula/tibia XR right 2 views [XR tibia fibula RT 2V] Exams 06/04/24 22:13 Taken Stat Medical Decision Narrative: 28 yo female presenting with right lower extremity pain. Patient states that she was walking out on her porch yesterday and when her right lower extremity fell through a loose board. She states that she sustained some superficial abrasions over the left lower extremity and felt some numbness maybe after the event. She was able to ambulate with partial weight bearing after the injury. She tried taking tylenol after her injury which did not help and decided to come to the emergency department to get things checked out . Patient unable to take NSAID's because she reports having a GI bleed recently. Her gasteroenterologist told her to take tylenol for pain instead of NSAIDs. Patient admits to diminished sensation in the left foot. Patient denies constitutional symptoms, weakness, and paresthesia's. History was obtained via conversation with patient and her . On arrival, patient hemodynamically stable, alert, and moving all extremities spontaneously. Full physical exam performed and significant for superficial abrasions over the anterolateral aspect of the left lower extremity with a circular lesions surrounding the area of the injury. Patient EHL/TA/PT intact, compartments are soft and compressible, DP/PT pulse +2/4 b/l. Differential includes superficial cellulitus, ankle sprain, ankle fracture, tibia/fibula fracture, and compartent syndrome. Patient was given acetaminophen for symptomatic management. Patient also given Tdap and Keflex. Workup independently interpreted and significant for no acute bony abnormality of the imaged lower extremity. See radiology read for full review of final results. On reevaluation, patient resting comfortably. Received meds and Tdap. Given patient presentation, workup, history, this most likely represents superficial cellulitis in the setting of minor injury. Because patient at baseline without signs or symptoms of clinical decompensation, deemed appropriate for discharge. Results were relayed to patient who voiced understanding and were agreeable to outpatient management and follow up. I discussed my clinical impression with patient and answered all questions. At this time, the evidence for any other entities in the differential is insufficient to warrant any further testing or ED observation. This was explained as well. Advisory was given that persistent or worsening symptoms require further evaluation. I confirmed the understanding of this discussion. Inspector Balance Truing disclaimer Much of this encounter note is an electronic telephoto engineer spoken language to printed text. Electronic telephoto engineer of the spoken language may permit errors. Although I have reviewed the note, some errors may still exist. <Art Najera - Last Filed: 06/04/24 22:54> Vital Signs: 06/04/24 21:41 06/04/24 22:45 Temperature 98.0 F 98 F Temperature Source Temporal Artery Scan Oral Pulse Rate 85 Respiratory Rate 18 18 Blood Pressure 117/69 Blood Pressure [Right Arm] 134/80 Blood Pressure Mean [Right Arm] 98 Blood Pressure Source [Right Arm] Automatic Cuff Blood Pressure Position Sitting Blood Pressure Position [Right Arm] Sitting 02 Sat by Pulse Oximetry 98 Oxygen Delivery Method Room Air Room Air Orders (Tests/Meds): ED MEDICATIONS Discontinued Medications Generic Name Dose Route Start Last Admin Trade Name Freq PRN Reason Stop Dose Admin Acetaminophen 1,000 mg 06/04/24 22:13 06/04/24 22:30 Acetaminophen 500mg Tab PO 06/04/24 22:14 1,000 mg ONCE ONE Administration Cephalexin HCl 1,000 mg 06/04/24 22:43 06/04/24 22:49 Cephalexin 500mg Capsule PO 06/04/24 22:44 1,000 mg ONCE ONE Administration Tetanus/Reduced Diphtheria/Acell Pertussis 0.5 ml 06/04/24 22:43 06/04/24 22:49 Tet/Diphth/Pert-Adult 0.5ml Syringe IM 06/04/24 22:44 0.5 ml .ONCE ONE Administration ORDERS Category Date Time Status Ankle XR -Right minimum 3 Views [XR ankle RT min 3V] Exams 06/04/24 22:13 Taken Stat Fibula/tibia XR right 2 views [XR tibia fibula RT 2V] Exams 06/04/24 22:13 Taken Stat Medical Decision Narrative: 28 yo female presenting with right lower extremity pain. Patient states that she was walking out on her porch yesterday and when her right lower extremity fell through a loose board. She states that she sustained some superficial abrasions over the left lower extremity and felt some numbness maybe after the event. She was able to ambulate with partial weight bearing after the injury. She tried taking tylenol after her injury which did not help and decided to come to the emergency department to get things checked out . Patient unable to take NSAID's because she reports having a GI bleed recently. Her gasteroenterologist told her to take tylenol for pain instead of NSAIDs. Patient admits to diminished sensation in the left foot. Patient denies constitutional symptoms, weakness, and paresthesia's. History was obtained via conversation with patient and her . On arrival, patient hemodynamically stable, alert, and moving all extremities spontaneously. Full physical exam performed and significant for superficial abrasions over the anterolateral aspect of the left lower extremity with a circular lesions surrounding the area of the injury. Patient EHL/TA/PT intact, compartments are soft and compressible, DP/PT pulse +2/4 b/l. Differential includes superficial cellulitus, ankle sprain, ankle fracture, tibia/fibula fracture, and compartent syndrome. Patient was given [] for symptomatic management. Workup independently interpreted and significant for []. See radiology read for full review of final results. On reevaluation, [additional tests/treatment]. [Tissue perfusion reassessment performed within 3 hours, patient mentating, following commands, good capillary refill and hemodynamically stable.] [Consultants] [obs] Given patient presentation, workup, history, this most likely represents []. Inspector Balance Truing disclaimer Much of this encounter note is an electronic telephoto engineer spoken language to printed text. Electronic telephoto engineer of the spoken language may permit errors. Although I have reviewed the note, some errors may still exist. Critical Care <Kelechi Guardado MD - Last Filed: 06/04/24 23:04> Critical Care Time Critical Care Time: No
[2024-06-04] MEDS: ACETAMINOPHEN 500MG TAB 1000 MG PO (22:30)
[2024-06-04 22:45] VITALS: BP 117/69; PULSE 85; RESP 18; TEMP 36.6; O2SAT 96
[2024-06-04] MEDS: cephALEXin 500MG CAPSULE 1000 MG PO (22:49)
[2024-06-04] MEDS: TET/DIPHTH/PERT-ADULT 0.5ML SYRINGE 0.5 ML IM (22:49)
== END 2024-06-04 22:59 | disposition home or self-care (01) ==
PROVIDERS: Emergency Provider Emergency Medicine; PCP Internal Medicine Adolescent Medicine
DX: R22.41 Localized swelling, mass and lump, right lower limb (principal); M79.604 Pain in right leg; R20.2 Paresthesia of skin; Z23 Encounter for immunization; W19.XXXA Unspecified fall, initial encounter; Y93.89 Activity, other specified; Y92.008 Other place in unspecified non-institutional (private) residence as the place of occurrence of the external cause
CPT/HCPCS: 73590; 73610; 90471; 90715; 99283

== ENCOUNTER 2024-08-19 08:16 | Outpatient (CLI) | payer MEDICAID, SELFPAY ==
--- NOTE | 2024-08-19 08:30 | US_ITS ---
FINAL REPORT CLINICAL HISTORY: Right upper quad pain COMPARISON: 03/02/2024 FINDINGS: Sonographic images of the right upper quadrant were obtained. The pancreas is partially obscured. There is mild increased echogenicity of the liver consistent with fatty infiltration. There are nondependent, echogenic and nonshadowing foci in the lateral wall of the gallbladder, that may represent polyps. These were also seen on the prior ultrasound of 03/02/2024. Trace sludge appears present in the gallbladder as well. There is no evidence of biliary ductal dilatation.The common duct measures 4mm. Limited images of the right kidney are unremarkable. IMPRESSION: Nondependent, echogenic and nonshadowing foci are present in the lateral wall of the gallbladder, that may represent polyps. These were also seen on the prior ultrasound of 03/02/2024. Fatty infiltration of the liver remains present. Reviewed, Interpreted and Dictated by Jatin Adan MD Transcribed by Stephani Trent Authenticated and [facility]
== END 2024-08-19 23:59 | disposition home or self-care (01) ==
LOC: RAD 08:17
PROVIDERS: PCP Internal Medicine Adolescent Medicine; Visit Provider Surgery
DX: K76.0 Fatty (change of) liver, not elsewhere classified (principal); R93.2 Abnormal findings on diagnostic imaging of liver and biliary tract; R10.11 Right upper quadrant pain
CPT/HCPCS: 76705

== ENCOUNTER 2024-09-02 16:40 | Outpatient (CLI) | payer MEDICAID, SELFPAY ==
--- OUTSIDE RECORDS SUMMARY | 2024-09-02 16:43 | XMS_ITS | Clinical Summary ---
Author Organization [facility] Address [address] [place] [address] Care Team Providers Care Air Vice Marshal Name Role Phone Anette Gaviria CARMEN Primary Care Provider [phone] Allergies No known active allergies Medications omeprazole (PriLOSEC) [address] capsule Take 1 capsule (20 mg) by mouth 1 (one) time each day. Do not crush or chew. Active escitalopram (Lexapro) 20 MG tablet 01/06/2023 Active Active Problems Problem Noted Date Diagnosed Date Right lower quadrant abdominal pain 12/25/2022 Assessment & Plan (01/13/2023 3:22 PM EDT): - TVUS: normal uterus and right ovary, left ovary not visualized - discussed with normal US and as pain is exacerbated by movement, likely MSK - will try physical therapy. Referral placed - discussed that with abdominal/pelvic pain hysterectomy is usually last resort and most times does not resolve pain. Discussed trying physical therapy first and seeing if it helps pain. Discussed if no improvement will try referral to GI and urology to make sure there is no other source of pain. - RTC after physical therapy for re-evaluation of pain Assessment & Plan (12/25/2022 4:45 PM EDT): - normal exam today. No tenderness of pelvic floor muscles - will return for US - if US normal, as pain is exacerbated by movement, likely MSK and plan physical therapy Status post hysteroscopic ablation of endometriu m 11/13/2022 Assessment & Plan (11/13/2022 11:40 AM EDT): -Benign endometrium no evidence of atypia or malignancy -Patient is doing well post-op -She can resume regular activities -RTC annually Resolved Problems Problem Noted Date Diagnosed Date Resolved Date Menorrhagia with regular cycle 09/13/2022 11/13/2022 Pelvic and perineal pain 09/13/2022 Social History Tobacco Use Types Packs/Day Years Used Date Smoking Tobacco: Never Smokeless Tobacco: Never Tobacco Cessation:Counseling Given: Not Answered Alcohol Use Standard Drinks/Week Comments Never 0 (1 standard drink = 0.6 oz pur e alcohol) PHQ-2 Answer Date Recorded Patient Health Questionnaire-2 Score 0 01/13/2023 PHQ-9 Answer Date Recorded Patient Health Questionnaire-9 Score 6 07/16/2022 PHQ-2A Answer Date Recorded Patient Health Questionnaire-2 Score 0 01/13/2023 Comments No Sex and Gender Information Value Date Recorded Sex Assigned at Not on file Legal Sex Female 6:23 PM EDT Gender Identity Not on file Sexual Orientation Not on file Last Filed Vital Signs Vital Sign Reading Time Taken Comments Blood Pressure 111/70 01/13/2023 1:39 PM EDT Pulse 78 01/13/2023 1:39 PM EDT Temperature 36.8 C (98.3 F) 10/14/2022 11:02 AM EDT Respiratory Rate 16 11/13/2022 11:2 0 AM EDT Oxygen Saturation 100% 01/13/2023 1:39 PM EDT Inhaled Oxygen Concentration - - Weight 95.7 kg (210 lb 13.9 oz) 01/13/2023 1:39 PM EDT Height 162.6 cm (5' 4 ) 01/13/2023 1:39 PM EDT Body Mass Index 36.2 01/13/2023 1:39 PM EDT Plan of Treatment Health Maintenance Due Date Last Done Comments [facility]-HIV Screening 1993 [facility]-Hepatitis C Screening 1993 [facility]-/Child/Adol SDOH Screenings 1993 [facility]-Varicella Vaccines (1 of 2 - 13+ 2-dose series) 2006 HPV Vaccines (1 - 3-dose series) 2008 [facility]- SDOH Screenings 10/11/2011 [facility]-Adult SDOH Screenings 10/11/2011 [facility]-DTaP,Tdap,and Td Vaccines (1 - Tdap) 2012 [facility]-Hepatitis B Vaccines (1 of 3 - 19+ 3-dose series) 2012 [facility]-Pap Smear 2014 [facility]-Cervical Cancer Screening 10/11/2023 [facility]-HPV/Cotest 10/11/2023 [id number] Vaccine (1 - 2023- season) 2023 [facility]-Depression Screening 01/14/2024 01/13/2023, 06/23 [facility]-Influenza Vaccine (Season Ended) 2024 [facility]-Zoster Vaccines (1 of 2) 10/11/2043 [facility]-Obesity Intervention Completed 023, 12/25/2022, 11/13/2022, Additional history exists [facility]-HIB Vaccines Aged Out No longer e ligible based on patient's age to complete this topic [facility]-Hepatitis A Vaccines Aged Out No longer eligible based on patient's age to complete this topic [facility]-IPV Vaccines Aged Out No longer e ligible based on patient's age to complete this topic [facility]-Pneumococcal Vaccine: Pediatrics (0 to 5 Years) and At-Risk Patients (6 to 49 Years) Aged Out No longer eligible based on patient's age to complete this topic [facility]-Rotavirus Vaccines Aged Out No lo nger eligible based on patient's age to complete this topic Insurance Contactual [facility] MEDICAID ANTHEM Care Teams Air Vice Marshal Relationship Specialty Start Date End Date Anette Gaviria APRN [address] [facility] [address] [place] [address] PCP - General 07/16/22
--- OUTSIDE RECORDS SUMMARY | 2024-09-02 16:43 | XMS_ITS | Clinical Summary ---
Author Organization [facility] Address [address] [place], [place] [id number] Phone [email or web address] Care Team Providers Care Nursing Education Consultant Name Role Phone Provider, No Primary Care Provider Unavailabl e Allergies No known active allergies Medications sertraline (ZOLOFT) 50 MG tablet 11/04/2020 Active escitalopram (LEXAPRO) 10 MG tablet Take 10 mg by mouth 1 (one) time each day. 2022 Active Active Problems No known active problems Social History Tobacco Use Types Packs/Day Years Used Date Smoking Tobacco: Never Smokeless Tobacco: Never Tobacco Cessation:Counseling Given: Not Answered Intimate Partner Violence Answer Date R ecorded Insults You Not on file 08/05/2021 Threatens You Not on file 08/05/2021 Screams at You Not on file 08/05/2021 Physically Hurt Not on file 08/05/2021 Intimate Partner Violence Score Not on file 08/05/2021 Depression Answer Date Recorded PHQ Total Score 0 11/26/2022 Comments Unknown Sex and Gender Information Value Date Recorded Sex Assigned at Not on file Legal Sex Female 2:28 PM CDT Gender Identity Not on file Sexual Orientation Not on file Last Filed Vital Signs Vital Sign Reading Time Taken Comments Blood Pressure 117/81 11/26/2022 3:58 PM EDT Pulse 108 11/26/2022 3:58 PM EDT Temperature 36.4 C (97.5 F) 09/25/2021 2:47 PM EDT Respiratory Rate 18 11/26/2022 3:58 PM EDT Oxygen Saturation 97% 11/26/2022 3:58 PM EDT Inhaled Oxygen Concentration - - Weight 87.2 kg (192 lb 3.2 oz) 07/03/2020 2:05 P M EDT Height 162.6 cm (5' 4 ) 07/03/2020 2:05 PM EDT Body Mass Index 32.99 07/03/2020 2:05 PM EDT Plan of Treatment Health Maintenance Due Date Last Done Comments Dental Cleaning/Exam 1993 Cervical Cancer Screening 2009 Hepatitis B Immunization (1 of 3 - 19+ 3-dose series) 2012 Tetanus Diphtheria and Pertu ssis Immunization (1 - Tdap) 2012 Covid-19 Immunization (1 - 2 024-25 season) 2023 Influenza Immunization (Seas on Ended) 2024 HIB Immunization Aged Out No longer e ligible based on patient's age to complete this topic HPV Immunization Aged Out No longer e ligible based on patient's age to complete this topic Hepatitis A Immunization Aged Out No longer eligible based on patient's age to complete this topic Pneumococcal: Ped (0 to 5 Yr s) and At-Risk Member (6 to 64 Yrs) Aged Out No longer e ligible based on patient's age to complete this topic Polio Immunization Aged Out No longer eligible based on patient's age to complete this topic Varicella Immunization Aged Out No lo nger eligible based on patient's age to complete this topic Insurance OPT OUT NO COPAY NB OPT OUT NO COPAY NB Care Teams Nursing Education Consultant Relationship Specialty Start Date End Date Provider, LAWRENCE Aragon [id number] PCP - General Manager Statistical 11/26/22
[2024-09-05 01:07] LABS: Pancreatic Elastase, Fecal >800 (>200)
== END 2024-09-02 23:59 | disposition home or self-care (01) ==
LOC: LAB 16:41
PROVIDERS: PCP Internal Medicine Adolescent Medicine; Visit Provider Nurse Practitioner Family
DX: R14.0 Abdominal distension (gaseous) (principal)
CPT/HCPCS: 82656

== ENCOUNTER 2024-11-02 16:12 | Outpatient (CLI) | payer MEDICAID, SELFPAY ==
[2024-11-02 20:26] LABS: Influenza A, PCR Not Detected (NotDetected); Influenza B, PCR Not Detected (NotDetected)
[2024-11-02 22:53] LABS: Coronavirus 19, PCR Detected (NotDetected)
--- OUTSIDE RECORDS SUMMARY | 2024-11-03 10:59 | XMS_ITS | Clinical Summary ---
Author Organization [facility] Address [address] [place], [place] [id number] Phone [email or web address] Care Team Providers Care Forklift Truck Mechanic Name Role Phone Provider, No Primary Care [...] Health Maintenance Due Date Last Done Comments Cervical Cancer Screening Combo 1993 Dental Cleaning/Exam 1993 HPV / Cotest 1993 Pap Testing 1993 HPV Immunization (1 - 2-dose series) 2004 Hepatitis B Immunization (1 of 3 - 19+ 3-dose series) 2012 Tetanus Diphtheria and Pertu ssis Immunization (1 - Tdap) 2012 Covid-19 Immunization (1 - 2 25 season) 2023 Influenza Immunization (#1) 2024 HIB Immunization Aged Out No longer [...] OPT OUT NO COPAY NB Care Teams Forklift Truck Mechanic Relationship Specialty Start Date End Date Provider, LAWRENCE Aragon [id number] PCP - General Credit Verification Clerk 11/26/22
--- OUTSIDE RECORDS SUMMARY | 2024-11-03 10:59 | XMS_ITS | Clinical Summary ---
Author Organization [facility] Address [address] [place] [address] Care Team Providers Care Social Services Analyst Name Role Phone Anette Gaviria CARMEN Primary Care Provider [phone] Allergies No known active allergies Medications omeprazole [...] of 2 - 13+ 2-dose series) 2006 [facility]- SDOH Screenings 10/11/2011 [facility]-Adult SDOH Screenings 10/11/2011 [facility]-DTaP,Tdap,and Td Vaccines (1 - Tdap) 2012 [facility]-Hepatitis B Vaccines (1 of 3 - 19+ 3-dose series) 2012 [facility]-Pap Smear 2014 HPV Vaccines (1 - 3-dose SCDM series) 2020 [facility]-Cervical Cancer Screening 10/11/2023 [facility]-HPV/Cotest 10/11/2023 [id number] Vaccine (1 - 2023-25 season) 2023 [facility]-Depression Screening 01/14/2024 01/13/2023, 06/23 [facility]-Influenza Vaccine (#1) 2024 [facility]-Zoster Vaccines (1 of 2) 10/11/2043 [...] patient's age to complete this topic Insurance [employer] MEDICAID ANTHEM Care Teams Social Services Analyst Relationship Specialty Start Date End Date Anette Gaviria APRN [address] [facility] [address] [place] [address] PCP - General 07/16/22
== END 2024-11-02 23:59 | disposition home or self-care (01) ==
LOC: LAB.DROPOF 11-03 10:53
PROVIDERS: PCP Nurse Practitioner Family; Visit Provider Nurse Practitioner Family
DX: J06.9 Acute upper respiratory infection, unspecified (principal)
CPT/HCPCS: 87631